=== PATIENT | female | born 1990 | race Caucasian/White ===

== ENCOUNTER 2016-06-27 18:42 | Emergency (ER) | payer OTHER ==
[2016-06-27 18:59] VITALS: BP 112/60; PULSE 102; TEMP 97.1; BMI 22.1
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
--- NOTE | 2016-06-27 19:58 | PDOC ---
*Physical Exam - Vital Signs Last Vital Signs Temp Pulse Resp BP Pulse Ox 97.1 F L 102 H 20 112/60 97 06/27/16 18:54 06/27/16 18:54 06/27/16 18:54 06/27/16 18:54 06/27/16 18:54 Medical Decision Making - Medical Decision Making 06/27/16 19:57 agree with care from [facility] *DC/Admit/Observation/Transfer Diagnosis at time of Disposition: Drug dependence - Discharge Dispostion Disposition: HOME Condition at time of disposition: Stable - Patient Instructions Printed Discharge Instructions: Chemical Dependency (Narcotic) (Alternative Therapy), DI for Drug Abuse and Drug Addiction Print Language: DJIBOUTIAN
== END 2016-06-27 21:32 | disposition home or self-care (01) ==
LOC: JER 18:42
DX: F11.20 Opioid dependence, uncomplicated (principal)
CPT/HCPCS: 99282-25

== ENCOUNTER 2018-01-02 15:53 | Inpatient (IN) | payer OTHER ==
[2018-01-02 17:16] VITALS: BMI 29.5
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
[2018-01-02] MEDS ORDERED: IBUPROFEN 400 MG TABLET (FP) PO PRN (19:04)
[2018-01-02] MEDS ORDERED: MAG HYDROX/AL HYDROX/SIMETH 30 ML UNIT-DOSE CUP PO PRN (19:04)
[2018-01-02] MEDS ORDERED: MAGNESIUM HYDROX 2400MG/30ML ORAL SUSPENSION 30 ML CUP PO PRN (19:04)
[2018-01-02] MEDS ORDERED: LOPERAMIDE HCL 2 MG CAPSULE PO PRN (19:04)
[2018-01-02] MEDS ORDERED: P-EPHED 60MG/TRIPROLIDI 2.5MG TABLET PO PRN (19:04)
[2018-01-02] MEDS ORDERED: MENTHOL/PHENOL 1 EACH UD MM PRN (19:04)
[2018-01-02] MEDS ORDERED: guaiFENesin/D-METHORPHAN HB 10 ML UNIT-DOSE CUPS PO PRN (19:04)
[2018-01-02] MEDS ORDERED: METHADONE HCL 10 MG TABLET (FOR DETOX USE ONLY) PO ONE ×2 (19:04→23:00)
[2018-01-02] MEDS ORDERED: ACETAMINOPHEN 325 MG TABLET (FP) PO PRN (19:04)
[2018-01-02] MEDS ORDERED: MAGNESIUM CITRATE 300 ML BOTTLE PO PRN (19:04)
[2018-01-02] MEDS: THIAMINE HCL 100 MG TABLET (FP) PO SCH (22:34)
[2018-01-02] MEDS: CYCLOBENZAPRINE HCL 10 MG TABLET (FP) PO SCH (22:34)
[2018-01-02] MEDS: diazePAM 5 MG TABLET PO PRN (22:35)
[2018-01-02 23:32] LABS: URINE APPEARANCE TURBID; URINE BILIRUBIN NEGATIVE (<2.0 mg/dL); URINE COLOR YELLOW; URINE GLUCOSE (UA) NEGATIVE (NEGATIVE); URINE KETONE NEGATIVE (NEGATIVE); URINE LEUK ESTERASE NEGATIVE (NEGATIVE); URINE NITRITE NEGATIVE (NEGATIVE); URINE PROTEIN 1+ (NEGATIVE); URINE UROBILINOGEN NEGATIVE mg/dL (0.2-1.0)
[2018-01-02 23:51] LABS: EPI CELLS FEW /HPF (FEW); URINE BACTERIA RARE /hpf (NONE SEEN); URINE MUCUS MODERATE
[2018-01-03] MEDS: diazePAM 5 MG TABLET PO PRN ×4 (05:41→22:15)
[2018-01-03] MEDS: CYCLOBENZAPRINE HCL 5 MG TABLET PO SCH ×3 (06:27→22:16)
[2018-01-03] MEDS: CYCLOBENZAPRINE HCL 10 MG TABLET (FP) PO SCH (06:48)
--- NOTE | 2018-01-03 07:42 | CONSULT ---
[facility] Psychiatric Consult - Data Date of interview: 01/03/18 Admission source: [facility] Identifying data: This is a 27 years old female, single mother of two, unemployed, homeless, with no financial support, with psychiatric hospitalization history,. with history of Heroin dependency, is reporting withdrawal symptoms and seeking for detox. Last detox [facility] Apr 2016. Denies suicidal and homicidal history. Substance Abuse History: - Smoking Cessation. Smoking history: Never smoked. Have you smoked in the past 12 months: No. Aproximately how many cigarettes per day: 20. Hx Chewing Tobacco Use: No. Initiated information on smoking cessation: Yes. 'Breaking Loose' booklet given: 01/02/18. - Substance & Tx. History. Hx Alcohol Use: No. Hx Substance Use: Yes. Substance Use Type: Heroin. Hx Substance Use Treatment: Yes (Last detox [facility] Apr 2016. ). - Substances Abused. Heroin. Route: Inhalation. Frequency: Daily. Amount used: 10 bags. Age of first use: 23. Date of Last Use: 01/01/18 Medical History: Anemia, head injury history, Tachycardia history Psychiatric History: Patient reports history of depression and anxiety, denies psychiatric hospitalizations history, no medications taking prior to admission. Denies nsuicidal, homicidal history. Physical/Sexual Abuse/Trauma History: Denies Additional Comment: Observation. Detox Unit Care Protocol Mental Status Exam - Mental Status Exam Alert and Oriented to: Person Cognitive Function: Fair Patient Appearance: Unkempt Mood: Sad Affect: Flat Patient Behavior: Sedated Speech Pattern: Delayed Voice Loudness: Mildly Soft/Quiet Thought Process: Circumstantial, Goal Oriented Thought Disorder: Being Controlled Hallucinations: Denies Suicidal Ideation: Denies Homicidal Ideation: Denies Insight/Judgement: Fair Sleep: Difficulty falling asleep Appetite: Fair Muscle strength/Tone: Mild Hypotonicity Gait/Station: Normal Additional Comments: Observation. Detox Unit Care Protocol Psychiatric Findings - Problem List ([place] 1, 2,3) (1) Nicotine dependence Current Visit: Yes Status: Acute Qualifiers: Nicotine product type: cigarettes (2) Opioid dependence with withdrawal Current Visit: Yes Status: Acute (3) Anemia Current Visit: Yes Status: Chronic Qualifiers: Anemia type: unspecified type Qualified Code(s): D64.9 - Anemia, unspecified (4) Closed head injury Current Visit: No Status: Acute (5) Drug dependence Current Visit: No Status: Acute (6) Tachycardia Current Visit: No Status: Acute - Initial Treatment Plan Initial Treatment Plan: Observation. Detox Unit Care Protocol
[2018-01-03] MEDS ORDERED: METHADONE HCL 10 MG TABLET (FOR DETOX USE ONLY) PO ONE (10:00)
[2018-01-03 10:09] LABS: HEMATOCRIT 39.3 % (32.4-45.2); HEMOGLOBIN 12.5 GM/dL (10.7-15.3); MCH 27.4 pg (25.7-33.7); MCHC 31.8 g/dl (32.0-36.0); MEAN PLT VOLUME 9.4 fl (7.5-11.1); PLATELET COUNT 253 K/MM3 (134-434); RBC 4.57 M/mm3 (3.60-5.2); RDW 16.9 % (11.6-15.6); WHITE BLOOD COUNT 9.7 K/mm3 (4.0-10.0)
[2018-01-03] MEDS: PRENATAL VITAMINS W/ FOLIC ACID TABLET (FP) PO SCH (10:15)
[2018-01-03 10:47] LABS: ALBUMIN 3.5 g/dl (3.4-5.0); ALK PHOS 71 U/L (45-117); ANION GAP 9 MMOL/L (8-16); BILIRUBIN,TOTAL 0.4 mg/dL (0.2-1); BLOOD UREA NITROGEN 12 mg/dL (7-18); CALCIUM 9.1 mg/dL (8.5-10.1); CHLORIDE 105 mmol/L (98-107); CO2 27 mmol/L (21-32); CREATININE 0.8 mg/dL (0.55-1.3); GLUCOSE,RANDOM 87 mg/dL (74-106); POTASSIUM 4.3 mmol/L (3.5-5.1); SGOT/AST 12 U/L (15-37); SGPT/ALT 16 U/L (13-61); SODIUM 141 mmol/L (136-145); TOT PROT 6.9 g/dl (6.4-8.2)
--- NOTE | 2018-01-03 11:29 | PN ---
BHS COWS - Scale Resting Pulse: 1= [place] 81-100 Sweatin=Flushed/Facial Moisture Restless Observation: 0= Sits Still Pupil Size: 0= Normal to Room Light Bone or Joint Aches: 2= Severe Diffuse Aches Runny Nose/ Eye Tearin= Nasal Congestion GI Upset > 30mins: 0= None Tremor Observation of Outstretched Hands: 2= Slight Tremor Visible Yawning Observation: 2= >3x During Session Anxiety or Irritability: 2=Irritable/Anxious Goose Flesh Skin: 0=Smooth Skin COWS Score: 12 BHS Progress Note (SOAP) Subjective: agitation anxiety sweats interrupted sleep Objective: 01/03/18 11:33 Vital Signs Temperature 98.2 F 01/03/18 11:00 Pulse Rate 81 01/03/18 11:00 Respiratory Rate 18 01/03/18 11:00 Blood Pressure 90/55 L 01/03/18 11:00 O2 Sat by Pulse Oximetry (%) Laboratory Tests 01/02/18 01/03/18 01/03/18 23:00 07:00 07:00 WBC 9.7 RBC 4.57 Hgb 12.5 Hct 39.3 D MCV 86.0 MCH 27.4 MCHC 31.8 L RDW 16.9 H Plt Count 253 D MPV 9.4 D Sodium Potassium Chloride Carbon Dioxide Anion Gap BUN Creatinine Creat Clearance w eGFR Random Glucose Calcium Total Bilirubin AST ALT Alkaline Phosphatase Total Protein Albumin Urine Color Yellow Urine Appearance Turbid Urine pH 5.0 Ur Specific [place] 1.032 Urine Protein 1+ H Urine Glucose (UA) Negative Urine Ketones Negative Urine Blood 1+ H Urine Nitrite Negative Urine Bilirubin Negative Urine Urobilinogen Negative Ur Leukocyte Esterase Negative Urine WBC (Auto) 23 Urine RBC (Auto) 3 Ur Epithelial Cells Few Urine Bacteria Rare Urine Mucus Moderate HIV 1&2 Antibody Screen Negative HIV P24 Antigen Negative 01/03/18 07:00 WBC RBC Hgb Hct MCV MCH MCHC RDW Plt Count MPV Sodium 141 Potassium 4.3 Chloride 105 Carbon Dioxide 27 Anion Gap 9 BUN 12 Creatinine 0.8 Creat Clearance w eGFR > 60 Random Glucose 87 Calcium 9.1 Total Bilirubin 0.4 AST 12 L ALT 16 Alkaline Phosphatase 71 Total Protein 6.9 Albumin 3.5 Urine Color Urine Appearance Urine pH Ur Specific [place] Urine Protein Urine Glucose (UA) Urine Ketones Urine Blood Urine Nitrite Urine Bilirubin Urine Urobilinogen Ur Leukocyte Esterase Urine WBC (Auto) Urine RBC (Auto) Ur Epithelial Cells Urine Bacteria Urine Mucus HIV 1&2 Antibody Screen HIV P24 Antigen aaox3 lying in bed no acute distress pt denies any vaginal/urine discomfort. pt has her menstruation. Assessment: 01/03/18 11:35 withdrawal sx Plan: continue detox increase fluids
--- NOTE | 2018-01-03 12:13 | EKG ---
Test Reason : Blood Pressure : / mmHG Vent. Rate : 069 BPM Atrial Rate : 069 BPM P-R Int : 124 ms QRS Dur : 082 ms QT Int : 396 ms P-R-T Axes : 024 -03 -07 degrees QTc Int : 424 ms NORMAL SINUS RHYTHM MODERATE VOLTAGE CRITERIA FOR LVH, MAY BE NORMAL VARIANT BORDERLINE ECG WHEN COMPARED WITH ECG OF 22-DEC-2012 09:21, INVERTED T WAVES HAVE REPLACED NONSPECIFIC T WAVE ABNORMALITY IN INFERIOR LEADS Confirmed by JERAMIE RADER MD ([id number]) on 01/03/2018 12:12:49 PM Referred By: Confirmed By:JERAMIE RADER MD
[2018-01-03] MEDS: THIAMINE HCL 100 MG TABLET (FP) PO SCH (22:15)
[2018-01-03] MEDS: MELATONIN 5 MG TABLETS PO PRN (22:16)
[2018-01-04] MEDS: CYCLOBENZAPRINE HCL 5 MG TABLET PO SCH ×3 (05:40→22:32)
[2018-01-04] MEDS: diazePAM 5 MG TABLET PO PRN ×4 (05:40→22:33)
[2018-01-04] MEDS ORDERED: METHADONE HCL 5 MG TABLET (FOR DETOX USE ONLY) PO ONE (10:00)
[2018-01-04] MEDS: PRENATAL VITAMINS W/ FOLIC ACID TABLET (FP) PO SCH (10:48)
--- NOTE | 2018-01-04 13:54 | PN ---
BHS COWS - Scale Resting Pulse: 0= [place] 80 or Below Sweatin=Flushed/Facial Moisture Restless Observation: 0= Sits Still Pupil Size: 0= Normal to Room Light Bone or Joint Aches: 2= Severe Diffuse Aches Runny Nose/ Eye Tearin= Nasal Congestion GI Upset > 30mins: 0= None Tremor Observation of Outstretched Hands: 2= Slight Tremor Visible Yawning Observation: 2= >3x During Session Anxiety or Irritability: 2=Irritable/Anxious Goose Flesh Skin: 0=Smooth Skin COWS Score: 11 BHS Progress Note (SOAP) Subjective: sweats irritable agitation tired Objective: 01/04/18 13:53 Vital Signs Temperature 97.7 F 01/04/18 10:00 Pulse Rate 60 01/04/18 10:00 Respiratory Rate 18 01/04/18 10:00 Blood Pressure 92/64 01/04/18 10:00 O2 Sat by Pulse Oximetry (%) Laboratory Tests 01/02/18 01/03/18 01/03/18 23:00 07:00 07:00 WBC 9.7 RBC 4.57 Hgb 12.5 Hct 39.3 D MCV 86.0 MCH 27.4 MCHC 31.8 L RDW 16.9 H Plt Count 253 D MPV 9.4 D Sodium Potassium Chloride Carbon Dioxide Anion Gap BUN Creatinine Creat Clearance w eGFR Random Glucose Calcium Total Bilirubin AST ALT Alkaline Phosphatase Total Protein Albumin Urine Color Yellow Urine Appearance Turbid Urine pH 5.0 Ur Specific [place] 1.032 Urine Protein 1+ H Urine Glucose (UA) Negative Urine Ketones Negative Urine Blood 1+ H Urine Nitrite Negative Urine Bilirubin Negative Urine Urobilinogen Negative Ur Leukocyte Esterase Negative Urine WBC (Auto) 23 Urine RBC (Auto) 3 Ur Epithelial Cells Few Urine Bacteria Rare Urine Mucus Moderate RPR Titer HIV 1&2 Antibody Screen Negative HIV P24 Antigen Negative 01/03/18 01/03/18 07:00 07:00 WBC RBC Hgb Hct MCV MCH MCHC RDW Plt Count MPV Sodium 141 Potassium 4.3 Chloride 105 Carbon Dioxide 27 Anion Gap 9 BUN 12 Creatinine 0.8 Creat Clearance w eGFR > 60 Random Glucose 87 Calcium 9.1 Total Bilirubin 0.4 AST 12 L ALT 16 Alkaline Phosphatase 71 Total Protein 6.9 Albumin 3.5 Urine Color Urine Appearance Urine pH Ur Specific [place] Urine Protein Urine Glucose (UA) Urine Ketones Urine Blood Urine Nitrite Urine Bilirubin Urine Urobilinogen Ur Leukocyte Esterase Urine WBC (Auto) Urine RBC (Auto) Ur Epithelial Cells Urine Bacteria Urine Mucus RPR Titer Nonreactive HIV 1&2 Antibody Screen HIV P24 Antigen aaox3 ambulating no acute distress Assessment: 01/04/18 13:53 withdrawal sx Plan: continue detox increase fluids
[2018-01-04] MEDS: MELATONIN 5 MG TABLETS PO PRN (22:32)
[2018-01-04] MEDS: THIAMINE HCL 100 MG TABLET (FP) PO SCH (22:34)
[2018-01-05] MEDS: CYCLOBENZAPRINE HCL 5 MG TABLET PO SCH ×3 (05:41→22:05)
[2018-01-05] MEDS: diazePAM 5 MG TABLET PO PRN ×3 (05:43→14:57)
[2018-01-05] MEDS ORDERED: METHADONE HCL 5 MG TABLET (FOR DETOX USE ONLY) PO ONE (10:00)
[2018-01-05] MEDS: PRENATAL VITAMINS W/ FOLIC ACID TABLET (FP) PO SCH (10:37)
--- NOTE | 2018-01-05 15:35 | PN ---
BHS Progress Note Note: acid reflux, decrease appetite, anxious Vital Signs Temperature 99.1 F 01/05/18 15:11 Pulse Rate 108 H 01/05/18 15:11 Respiratory Rate 20 01/05/18 15:11 Blood Pressure 118/74 01/05/18 15:11 O2 Sat by Pulse Oximetry (%) Laboratory Last Values WBC 9.7 K/mm3 (4.0-10.0) 01/03/18 07:00 RBC 4.57 M/mm3 (3.60-5.2) 01/03/18 07:00 Hgb 12.5 GM/dL (10.7-15.3) 01/03/18 07:00 Hct 39.3 % (32.4-45.2) D 01/03/18 07:00 MCV 86.0 fl (80-96) 01/03/18 07:00 MCH 27.4 pg (25.7-33.7) 01/03/18 07:00 MCHC 31.8 g/dl (32.0-36.0) L 01/03/18 07:00 RDW 16.9 % (11.6-15.6) H 01/03/18 07:00 Plt Count 253 K/MM3 (134-434) D 01/03/18 07:00 MPV 9.4 fl (7.5-11.1) D 01/03/18 07:00 Sodium 141 mmol/L (136-145) 01/03/18 07:00 Potassium 4.3 mmol/L (3.5-5.1) 01/03/18 07:00 Chloride 105 mmol/L (98-107) 01/03/18 07:00 Carbon Dioxide 27 mmol/L (21-32) 01/03/18 07:00 Anion Gap 9 MMOL/L (8-16) 01/03/18 07:00 BUN 12 mg/dL (7-18) 01/03/18 07:00 Creatinine 0.8 mg/dL (0.55-1.3) 01/03/18 07:00 Creat Clearance w eGFR > 60 (>60) 01/03/18 07:00 Random Glucose 87 mg/dL (74-106) 01/03/18 07:00 Calcium 9.1 mg/dL (8.5-10.1) 01/03/18 07:00 Total Bilirubin 0.4 mg/dL (0.2-1) 01/03/18 07:00 AST 12 U/L (15-37) L 01/03/18 07:00 ALT 16 U/L (13-61) 01/03/18 07:00 Alkaline Phosphatase 71 U/L (45-117) 01/03/18 07:00 Total Protein 6.9 g/dl (6.4-8.2) 01/03/18 07:00 Albumin 3.5 g/dl (3.4-5.0) 01/03/18 07:00 Urine Color Yellow 01/02/18 23:00 Urine Appearance Turbid 01/02/18 23:00 Urine pH 5.0 (5.0-8.0) 01/02/18 23:00 Ur Specific [place] 1.032 (1.010-1.035) 01/02/18 23:00 Urine Protein 1+ (NEGATIVE) H 01/02/18 23:00 Urine Glucose (UA) Negative (NEGATIVE) 01/02/18 23:00 Urine Ketones Negative (NEGATIVE) 01/02/18 23:00 Urine Blood 1+ (NEGATIVE) H 01/02/18 23:00 Urine Nitrite Negative (NEGATIVE) 01/02/18 23:00 Urine Bilirubin Negative (<2.0 mg/dL) 01/02/18 23:00 Urine Urobilinogen Negative mg/dL (0.2-1.0) 01/02/18 23:00 Ur Leukocyte Esterase Negative (NEGATIVE) 01/02/18 23:00 Urine WBC (Auto) 23 /hpf (3-5) 01/02/18 23:00 Urine RBC (Auto) 3 /hpf (0-3) 01/02/18 23:00 Ur Epithelial Cells Few /HPF (FEW) 01/02/18 23:00 Urine Bacteria Rare /hpf (NONE SEEN) 01/02/18 23:00 Urine Mucus Moderate 01/02/18 23:00 RPR Titer Nonreactive (NONREACTIVE) 01/03/18 07:00 HIV 1&2 Antibody Screen Negative 01/03/18 07:00 HIV P24 Antigen Negative 01/03/18 07:00 Aox3 no distress ABd non-tender non-distended full ROM ambulating in the unit withdrawal sx GERD protonix 20 mg qd increase fluids continue detox continue to monitor
[2018-01-05] MEDS: MELATONIN 5 MG TABLETS PO PRN (22:05)
[2018-01-05] MEDS: THIAMINE HCL 100 MG TABLET (FP) PO SCH (22:05)
[2018-01-06] MEDS: CYCLOBENZAPRINE HCL 5 MG TABLET PO SCH ×3 (06:09→22:01)
[2018-01-06] MEDS ORDERED: METHADONE HCL 10 MG TABLET (FOR DETOX USE ONLY) PO ONE (10:00)
[2018-01-06] MEDS: PRENATAL VITAMINS W/ FOLIC ACID TABLET (FP) PO SCH (10:29)
--- NOTE | 2018-01-06 14:40 | PN ---
BHS Progress Note (SOAP) Subjective: feeling better no tremor less sweat no body ache no muscle cramping sleep better at night Objective: 01/06/18 14:40 Vital Signs Temperature 97.6 F 01/06/18 10:00 Pulse Rate 78 01/06/18 10:00 Respiratory Rate 18 01/06/18 10:00 Blood Pressure 106/64 01/06/18 10:00 O2 Sat by Pulse Oximetry (%) Laboratory Last Values WBC 9.7 K/mm3 (4.0-10.0) 01/03/18 07:00 RBC 4.57 M/mm3 (3.60-5.2) 01/03/18 07:00 Hgb 12.5 GM/dL (10.7-15.3) 01/03/18 07:00 Hct 39.3 % (32.4-45.2) D 01/03/18 07:00 MCV 86.0 fl (80-96) 01/03/18 07:00 MCH 27.4 pg (25.7-33.7) 01/03/18 07:00 MCHC 31.8 g/dl (32.0-36.0) L 01/03/18 07:00 RDW 16.9 % (11.6-15.6) H 01/03/18 07:00 Plt Count 253 K/MM3 (134-434) D 01/03/18 07:00 MPV 9.4 fl (7.5-11.1) D 01/03/18 07:00 Sodium 141 mmol/L (136-145) 01/03/18 07:00 Potassium 4.3 mmol/L (3.5-5.1) 01/03/18 07:00 Chloride 105 mmol/L (98-107) 01/03/18 07:00 Carbon Dioxide 27 mmol/L (21-32) 01/03/18 07:00 Anion Gap 9 MMOL/L (8-16) 01/03/18 07:00 BUN 12 mg/dL (7-18) 01/03/18 07:00 Creatinine 0.8 mg/dL (0.55-1.3) 01/03/18 07:00 Creat Clearance w eGFR > 60 (>60) 01/03/18 07:00 Random Glucose 87 mg/dL (74-106) 01/03/18 07:00 Calcium 9.1 mg/dL (8.5-10.1) 01/03/18 07:00 Total Bilirubin 0.4 mg/dL (0.2-1) 01/03/18 07:00 AST 12 U/L (15-37) L 01/03/18 07:00 ALT 16 U/L (13-61) 01/03/18 07:00 Alkaline Phosphatase 71 U/L (45-117) 01/03/18 07:00 Total Protein 6.9 g/dl (6.4-8.2) 01/03/18 07:00 Albumin 3.5 g/dl (3.4-5.0) 01/03/18 07:00 Urine Color Yellow 01/02/18 23:00 Urine Appearance Turbid 01/02/18 23:00 Urine pH 5.0 (5.0-8.0) 01/02/18 23:00 Ur Specific [place] 1.032 (1.010-1.035) 01/02/18 23:00 Urine Protein 1+ (NEGATIVE) H 01/02/18 23:00 Urine Glucose (UA) Negative (NEGATIVE) 01/02/18 23:00 Urine Ketones Negative (NEGATIVE) 01/02/18 23:00 Urine Blood 1+ (NEGATIVE) H 01/02/18 23:00 Urine Nitrite Negative (NEGATIVE) 01/02/18 23:00 Urine Bilirubin Negative (<2.0 mg/dL) 01/02/18 23:00 Urine Urobilinogen Negative mg/dL (0.2-1.0) 01/02/18 23:00 Ur Leukocyte Esterase Negative (NEGATIVE) 01/02/18 23:00 Urine WBC (Auto) 23 /hpf (3-5) 01/02/18 23:00 Urine RBC (Auto) 3 /hpf (0-3) 01/02/18 23:00 Ur Epithelial Cells Few /HPF (FEW) 01/02/18 23:00 Urine Bacteria Rare /hpf (NONE SEEN) 01/02/18 23:00 Urine Mucus Moderate 01/02/18 23:00 RPR Titer Nonreactive (NONREACTIVE) 01/03/18 07:00 HIV 1&2 Antibody Screen Negative 01/03/18 07:00 HIV P24 Antigen Negative 01/03/18 07:00 lab noted Assessment: 01/06/18 14:40 mild withdrawal sx Plan: medically supervised detox
[2018-01-06] MEDS: THIAMINE HCL 100 MG TABLET (FP) PO SCH (22:01)
[2018-01-06] MEDS: MELATONIN 5 MG TABLETS PO PRN (22:01)
[2018-01-07] MEDS: CYCLOBENZAPRINE HCL 5 MG TABLET PO SCH (05:36)
[2018-01-07] MEDS ORDERED: METHADONE HCL 5 MG TABLET (FOR DETOX USE ONLY) PO ONE (06:00)
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
[2018-01-07] MEDS: PRENATAL VITAMINS W/ FOLIC ACID TABLET (FP) PO SCH (09:01)
[2018-01-07 09:17] VITALS: BP 124/80; PULSE 105; TEMP 97.9
== END 2018-01-07 09:45 | disposition home or self-care (01) | DRG 773 ==
LOC: YASAS 15:53 → Y6N 18:39
PROC: HZ2ZZZZ Detoxification Services for Substance Abuse Treatment (ICD-10-PCS; principal; 2018-01-02)
DX: F11.23 Opioid dependence with withdrawal (principal); F17.210 Nicotine dependence, cigarettes, uncomplicated; D64.9 Anemia, unspecified; K21.9 Gastro-esophageal reflux disease without esophagitis
CPT/HCPCS: 36415; 80053; 81003; 81015; 85027; 86593; 87389; 93005; 93010

== ENCOUNTER 2018-05-21 16:44 | Inpatient (IN) | payer OTHER ==
--- NOTE | 2018-05-21 21:41 | HP ---
COWS - Scale Resting Pulse: 0= ID 80 or Below Sweatin=Flushed/Facial Moisture Restless Observation: 0= Sits Still Pupil Size: 0= Normal to Room Light Bone or Joint Aches: 4=Acute Joint/Muscle Pain Runny Nose/ Eye Tearin= None GI Upset > 30mins: 2= Nausea/Diarrhea Tremor Observation: 2= Slight Tremor Visible Yawning Observation: 0= None Anxiety or Irritability: 4=Extreme Anxiety Goose Flesh Skin: 3=Piloerection COWS Score: 17 CIWA Score - Admission Criteria OASAS Guidelines: Admission for Medically Managed Detox: Requires at least one of the followin. CIWA greater than 12 2. Seizures within the past 24 hours 3. Delirium tremens within the past 24 hours 4. Hallucinations within the past 24 hours 5. Acute intervention needed for co occurring medical disorder 6. Acute intervention needed for co occurring psychiatric disorder 7. Severe withdrawal that cannot be handled at a lower level of care (continued vomiting, continued diarrhea, abnormal vital signs) requiring intravenous medication and/or fluids 8. Admission ROS [facility] Chief Complaint: Heroin withdrawal symptoms Allergies/Adverse Reactions: Allergies Allergy/AdvReac Type Severity Reaction Status Date / Time No Known Allergies Allergy Verified 05/21/18 23:50 History of Present Illness: 28 years old female with 5 years of heroin dependence is seeking admission to detox. Patient has been in previous detox and reports insignificant period of sobriety. She has medical history of anemia, seizure, depression and anxiety. She denies suicide attempt and suicidal ideation at this time. patient has cocaine and benzo n his urine but denies cocaine and benzo use. Reports that her heroine may have been contaminated with other drugs Exam Limitations: No Limitations - Ebola screening Have you traveled outside of the country in the last 21 days: No (N) Have you had contact with anyone from an Ebola affected area: No Have you been sick,other than usual withdrawal symptoms: No Do you have a fever: No - Review of Systems Constitutional: Chills, Loss of Appetite, Night Sweats, Changes in sleep EENT: reports: No Symptoms Reported Respiratory: reports: No Symptoms reported Cardiac: reports: No Symptoms Reported GI: reports: Nausea, Poor Appetite, Poor Fluid Intake, Abdominal cramping : reports: No Symptoms Reported Musculoskeletal: reports: Back Pain Integumentary: reports: Dryness Neuro: reports: Tremors Endocrine: reports: No Symptoms Reported Hematology: reports: Anemia Psychiatric: reports: Mood/Affect Appropiate, Orientated x3, Anxious, Depressed Other Systems: Reviewed and Negative Patient History - Patient Medical History Hx Anemia: Yes (Not on medication) Hx Asthma: No Hx Chronic Obstructive Pulmonary Disease (COPD): No Hx Cancer: No Hx Cardiac Disorders: No Hx Congestive Heart Failure: No Hx Hypertension: No Hx Hypercholesterolemia: No Hx Pacemaker: No HX Cerebrovascular Accident: No Hx Seizures: Yes (Last 2013) Hx Dementia: No Hx Diabetes: No Hx Gastrointestinal Disorders: No Hx Liver Disease: No Hx Genitourinary Disorders: No Hx Sexually Transmitted Disorders: No Hx Renal Disease (ESRD): No Hx Thyroid Disease: No Hx Human Immunodeficiency Virus (HIV): No (Negative ) Hx Hepatitis C: No Hx Depression: Yes (tx at [facility] apr 2016) Hx Suicide Attempt: Yes (ideation, hospitalized [facility] psych Mar 2014) Hx Bipolar Disorder: No Hx Schizophrenia: No Other Medical History: Anxiety - Not on medication - Patient Surgical History Past Surgical History: No Hx Neurologic Surgery: No Hx Cataract Extraction: No Hx Cardiac Surgery: No Hx Lung Surgery: No Hx Breast Surgery: No Hx Breast Biopsy: No Hx Abdominal Surgery: No Hx Appendectomy: No Hx Cholecystectomy: No Hx Genitourinary Surgery: No Hx Section: No Hx Orthopedic Surgery: No Anesthesia Reaction: No - PPD History Previous Implant?: Yes Documented Results: Negative w/o proof Implanted On Prior [facility] Admission?: Yes Date: 01/04/18 PPD to be Administered?: No - Reproductive History Patient is a Female of Child Bearing Age (11 -55 yrs old): Yes Last Menstrual Period: 01/02/18 LMP comment: ON IUD Patient : No - Smoking Cessation Smoking history: Current every day smoker Have you smoked in the past 12 months: Yes Aproximately how many cigarettes per day: 5 Hx Chewing Tobacco Use: No Initiated information on smoking cessation: Yes 'Breaking Loose' booklet given: 05/21/18 - Substance & Tx. History Hx Alcohol Use: No Hx Substance Use: Yes Substance Use Type: Heroin, Marijuana Hx Substance Use Treatment: Yes ([facility]) - Substances Abused Heroin Route: Inhalation Frequency: Daily Amount used: 5 BAGS Age of first use: 23 Date of Last Use: 05/21/18 Marijuana/Hashish Route: Smoking Frequency: 3-6 times per week Amount used: $30 Age of first use: 15 Date of Last Use: 05/18/18 Family Disease History - Family Disease History Family Disease History: Other: Father (living, no contact, etoh), Mother (living ), Brother (two - healthy), Daughter (two - ages 10, 5,) Admission Physical Exam [facility] - Physical General Appearance: Yes: Moderate Distress, Tremorous, Anxious HEENTM: Yes: EOMI, Normal ENT Inspection, Normal Voice, CHRISTINE Respiratory: Yes: Lungs Clear, Normal Breath Sounds, No Respiratory Distress Neck: Yes: Supple Breast: Yes: Breast Exam Deferred Cardiology: Yes: Regular Rhythm, Regular Rate Abdominal: Yes: Normal Bowel Sounds, Soft Genitourinary: Yes: Within Normal Limits Back: Yes: Normal Inspection Musculoskeletal: Yes: Within Normal Limits Extremities: Yes: Tremors 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: Yes: Alert, Normal Mood/Affect Integumentary: Yes: Warm Lymphatic: Yes: Within Normal Limits - Diagnostic (1) Nicotine dependence Current Visit: No Status: Acute Qualifiers: Nicotine product type: cigarettes Substance use status: uncomplicated Qualified Code(s): F17.210 - Nicotine dependence, cigarettes, uncomplicated (2) Opioid dependence with withdrawal Current Visit: Yes Status: Chronic (3) Anemia Current Visit: Yes Status: Chronic Qualifiers: Anemia type: unspecified type Qualified Code(s): D64.9 - Anemia, unspecified Cleared for Admission [facility] - Detox or Rehab [facility] Level of Care: Medically Managed Detox Regimen/Protocol: Methadone [facility] Breath Alcohol Content Breath Alcohol Content: 0 Inpatient Rehab Admission - Rehab Decision to Admit Inpatient rehab admission?: No
[2018-05-21] MEDS ORDERED: LOPERAMIDE HCL 2 MG CAPSULE PO PRN (21:58)
[2018-05-21] MEDS ORDERED: NICOTINE POLACRILEX 2 MG GUM BUC PRN (21:58)
[2018-05-21] MEDS ORDERED: MAG HYDROX/AL HYDROX/SIMETH 30 ML UNIT-DOSE CUP PO PRN (21:58)
[2018-05-21] MEDS ORDERED: ACETAMINOPHEN 325 MG TABLET (FP) PO PRN (21:58)
[2018-05-21] MEDS ORDERED: MAGNESIUM CITRATE 300 ML BOTTLE PO PRN (21:58)
[2018-05-21] MEDS ORDERED: guaiFENesin/D-METHORPHAN HB 10 ML UNIT-DOSE CUPS PO PRN (21:58)
[2018-05-21] MEDS ORDERED: MENTHOL/PHENOL 1 EACH UD MM PRN (21:58)
[2018-05-21] MEDS ORDERED: MAGNESIUM HYDROX 2400MG/30ML ORAL SUSPENSION 30 ML CUP PO PRN (21:58)
[2018-05-21] MEDS ORDERED: P-EPHED 60MG/TRIPROLIDI 2.5MG TABLET PO PRN (21:58)
[2018-05-21] MEDS ORDERED: METHADONE HCL 10 MG TABLET (FOR DETOX USE ONLY) PO ONE ×2 (21:58→23:00)
[2018-05-22] MEDS ORDERED: METHADONE HCL 10 MG TABLET (FOR DETOX USE ONLY) PO ONE ×2 (01:45→10:00)
[2018-05-22] MEDS: IBUPROFEN 400 MG TABLET (FP) PO PRN ×3 (01:53→22:18)
[2018-05-22] MEDS: THIAMINE HCL 100 MG TABLET (FP) PO SCH ×2 (01:54→22:18)
[2018-05-22] MEDS: MELATONIN 5 MG TABLETS PO PRN ×2 (01:56→22:18)
[2018-05-22] MEDS: PRENATAL VITAMINS W/ FOLIC ACID TABLET (FP) PO SCH (10:32)
[2018-05-22] MEDS: NICOTINE 14 MG/24 HOURS TOPICAL PATCH TD SCH (10:32)
--- NOTE | 2018-05-22 11:26 | PN ---
BHS COWS - Scale Resting Pulse: 1= OK 81-100 Sweatin=Flushed/Facial Moisture Restless Observation: 1= Difficult to Sit Still Pupil Size: 0= Normal to Room Light Bone or Joint Aches: 2= Severe Diffuse Aches Runny Nose/ Eye Tearin= Runny Nose/Eyes GI Upset > 30mins: 1= Stomach Cramp Tremor Observation of Outstretched Hands: 2= Slight Tremor Visible Yawning Observation: 2= >3x During Session Anxiety or Irritability: 2=Irritable/Anxious Goose Flesh Skin: 0=Smooth Skin COWS Score: 15 BHS Progress Note (SOAP) Subjective: sweats shakes body aches nasal congestion restless irritable interrupted sleep Objective: 05/22/18 11:25 Vital Signs Temperature 98.2 F 05/22/18 09:33 Pulse Rate 84 05/22/18 09:33 Respiratory Rate 18 05/22/18 09:33 Blood Pressure 131/86 05/22/18 09:33 O2 Sat by Pulse Oximetry (%) labs pending aaox3 lying in bed no acute distress Assessment: 05/22/18 11:26 withdrawal sx Plan: continue detox increase fluids actifed prn labs pending
[2018-05-22 12:37] LABS: HEMATOCRIT 37.2 % (32.4-45.2); HEMOGLOBIN 12.2 GM/dL (10.7-15.3); MCH 28.6 pg (25.7-33.7); MCHC 32.8 g/dl (32.0-36.0); MEAN CELL VOLUME 87.2 fl (80-96); MEAN PLT VOLUME 9.4 fl (7.5-11.1); PLATELET COUNT 303 K/MM3 (134-434); RBC 4.27 M/mm3 (3.60-5.2); RDW 14.9 % (11.6-15.6); WHITE BLOOD COUNT 9.3 K/mm3 (4.0-10.0)
[2018-05-22 12:56] LABS: ALBUMIN 3.6 g/dl (3.4-5.0); ALK PHOS 72 U/L (45-117); ANION GAP 6 MMOL/L (8-16); BILIRUBIN,TOTAL 0.2 mg/dL (0.2-1); BLOOD UREA NITROGEN 6 mg/dL (7-18); CALCIUM 8.6 mg/dL (8.5-10.1); CHLORIDE 103 mmol/L (98-107); CO2 29 mmol/L (21-32); CREATININE 0.7 mg/dL (0.55-1.3); GLUCOSE,RANDOM 104 mg/dL (74-106); POTASSIUM 4.5 mmol/L (3.5-5.1); SGOT/AST 13 U/L (15-37); SGPT/ALT 14 U/L (13-61); SODIUM 138 mmol/L (136-145); TOT PROT 6.9 g/dl (6.4-8.2)
[2018-05-22] MEDS: diazePAM 5 MG TABLET PO PRN (22:18)
[2018-05-23] MEDS ORDERED: METHADONE HCL 5 MG TABLET (FOR DETOX USE ONLY) PO ONE (10:00)
[2018-05-23] MEDS: diazePAM 5 MG TABLET PO PRN ×3 (10:05→22:15)
[2018-05-23] MEDS: PRENATAL VITAMINS W/ FOLIC ACID TABLET (FP) PO SCH (10:05)
[2018-05-23] MEDS: NICOTINE 14 MG/24 HOURS TOPICAL PATCH TD SCH (10:07)
--- NOTE | 2018-05-23 11:29 | PN ---
BHS COWS - Scale Resting Pulse: 0= [place] 80 or Below Sweatin=Flushed/Facial Moisture Restless Observation: 1= Difficult to Sit Still Pupil Size: 0= Normal to Room Light Bone or Joint Aches: 2= Severe Diffuse Aches Runny Nose/ Eye Tearin= Nasal Congestion GI Upset > 30mins: 0= None Tremor Observation of Outstretched Hands: 2= Slight Tremor Visible Yawning Observation: 0= None Anxiety or Irritability: 2=Irritable/Anxious Goose Flesh Skin: 0=Smooth Skin COWS Score: 10 BHS Progress Note (SOAP) Subjective: sweats mild shakes interrupted sleep agitation Objective: 05/23/18 11:28 Vital Signs Temperature 98.2 F 05/23/18 09:46 Pulse Rate 82 05/23/18 09:46 Respiratory Rate 18 05/23/18 09:46 Blood Pressure 137/75 05/23/18 09:46 O2 Sat by Pulse Oximetry (%) Laboratory Tests 05/22/18 05/22/18 05/22/18 07:00 07:00 07:00 WBC 9.3 RBC 4.27 Hgb 12.2 Hct 37.2 MCV 87.2 MCH 28.6 MCHC 32.8 RDW 14.9 D Plt Count 303 MPV 9.4 Sodium 138 Potassium 4.5 Chloride 103 Carbon Dioxide 29 Anion Gap 6 L BUN 6 L Creatinine 0.7 Creat Clearance w eGFR > 60 Random Glucose 104 Calcium 8.6 Total Bilirubin 0.2 AST 13 L ALT 14 Alkaline Phosphatase 72 Total Protein 6.9 Albumin 3.6 RPR Titer Nonreactive HIV 1&2 Antibody Screen HIV P24 Antigen 05/22/18 07:00 WBC RBC Hgb Hct MCV MCH MCHC RDW Plt Count MPV Sodium Potassium Chloride Carbon Dioxide Anion Gap BUN Creatinine Creat Clearance w eGFR Random Glucose Calcium Total Bilirubin AST ALT Alkaline Phosphatase Total Protein Albumin RPR Titer HIV 1&2 Antibody Screen Negative HIV P24 Antigen Negative aaox3 ambulating no acute distress Assessment: 05/23/18 11:29 withdrawal sx Plan: continue detox increase fluids
[2018-05-23] MEDS: THIAMINE HCL 100 MG TABLET (FP) PO SCH (22:15)
[2018-05-23] MEDS: MELATONIN 5 MG TABLETS PO PRN (22:16)
[2018-05-23] MEDS: IBUPROFEN 400 MG TABLET (FP) PO PRN (23:02)
[2018-05-24] MEDS ORDERED: METHADONE HCL 5 MG TABLET (FOR DETOX USE ONLY) PO ONE (10:00)
[2018-05-24] MEDS: PRENATAL VITAMINS W/ FOLIC ACID TABLET (FP) PO SCH (10:45)
[2018-05-24] MEDS: NICOTINE 14 MG/24 HOURS TOPICAL PATCH TD SCH (10:46)
--- NOTE | 2018-05-24 12:07 | PN ---
BHS Progress Note (SOAP) Subjective: feeling much better sweats agitation i need to leave tomorrow because i have a job to go to on sunday. Objective: 05/24/18 12:04 Vital Signs Period Temp Pulse Resp BP Sys/Stevenson Pulse Ox Last 24 Hr 97.9 F-98.6 F 55-102 16-18 105-126/57-84 aaox3 ambulating no acute distress Assessment: 05/24/18 12:08 withdrawal sx Plan: continue detox as ordered increase fluids d/c in am
[2018-05-24] MEDS: diazePAM 5 MG TABLET PO PRN (13:11)
[2018-05-24] MEDS: MELATONIN 5 MG TABLETS PO PRN (22:29)
[2018-05-24] MEDS: THIAMINE HCL 100 MG TABLET (FP) PO SCH (22:29)
[2018-05-24] MEDS ORDERED: diazePAM 5 MG TABLET PO ONE (23:23)
[2018-05-25] MEDS ORDERED: METHADONE HCL 10 MG TABLET (FOR DETOX USE ONLY) PO ONE ×2 (06:00→10:00)
[2018-05-25 07:13] VITALS: TEMP 97.7
[2018-05-25 09:38] VITALS: BP 114/70; PULSE 76
--- NOTE | 2018-05-25 11:41 | PN ---
S Progress Note (SOAP) Subjective: denies any complaints Objective: 05/25/18 11:40 A & O x 3 Not distress noted gait steady Vital Signs Temperature 97.7 F 05/25/18 09:37 Pulse Rate 76 05/25/18 09:37 Respiratory Rate 18 05/25/18 09:37 Blood Pressure 114/70 05/25/18 09:37 O2 Sat by Pulse Oximetry (%) Assessment: 05/25/18 11:41 detox completed Plan: for d/c
--- NOTE | 2018-05-25 11:46 | DS ---
[facility] Detox Discharge Summary Admission Date: 05/21/18 Discharge Date: 05/25/18 - History Additional Comments: Pt completed detox For discharge Pt going home to resume her job on sunday States she will do aftercare rehab by attending outpatient at [facility] and NA meetings Denies any home meds Narcan rx sent to [place] - verbalized understanding to pick it up - Physical Exam Results Vital Signs: Vital Signs Temperature 97.7 F 05/25/18 09:37 Pulse Rate 76 05/25/18 09:37 Respiratory Rate 18 05/25/18 09:37 Blood Pressure 114/70 05/25/18 09:37 O2 Sat by Pulse Oximetry (%) Pertinent Admission Physical Exam Findings: withdrawal sx - Treatment Hospital Course: Detox Protocol Followed, Detoxed Safely, Responded well, Discharged Condition Good, Rehab Referral Accepted Patient has Accepted a Rehab Referral to: Out patient at [facility] - Medication Discharge Medications: Ambulatory Orders Ferrous Sulfate 325 mg PO DAILY 01/02/18 Docusate Sodium [Colace -] 100 mg PO TID #90 capsule 01/28/18 Buprenorphine/Naloxone [Suboxone 8Mg/2Mg Sl Film -] 2 each SL DAILY #7 packet MDD 2 03/21/18 traZODone HCL [Trazodone HCl] 100 mg PO HS 05/21/18 - AMA Did Patient Leave Against Medical Advice: No
[2018-05-26] MEDS ORDERED: METHADONE HCL 5 MG TABLET (FOR DETOX USE ONLY) PO ONE (06:00)
== END 2018-05-25 09:53 | disposition home or self-care (01) | DRG 773 ==
LOC: YASAS 16:44 → Y6N 21:28
PROVIDERS: ADMIT Surgery; ATTEND Surgery
PROC: HZ2ZZZZ Detoxification Services for Substance Abuse Treatment (ICD-10-PCS; principal; 2018-05-21)
DX: F11.23 Opioid dependence with withdrawal (principal); F17.210 Nicotine dependence, cigarettes, uncomplicated; Z86.69 Personal history of other diseases of the nervous system and sense organs; Z91.5 Personal history of self-harm
CPT/HCPCS: 36415; 80053; 85027; 86593; 87389

== ENCOUNTER 2018-09-16 21:21 | Inpatient (IN) | payer OTHER ==
[2018-09-16 22:10] VITALS: BMI 28.3
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
[2018-09-16] MEDS ORDERED: NALOXONE HCL 0.4 MG/ML VIAL IVPUSH PRN (22:52)
[2018-09-16] MEDS ORDERED: ONDANSETRON *ODT* 4 MG TABLET SL PRN (22:52)
[2018-09-16] MEDS ORDERED: MAGNESIUM CITRATE 300 ML BOTTLE PO PRN (22:52)
[2018-09-16] MEDS ORDERED: P-EPHED 60MG/TRIPROLIDI 2.5MG TABLET PO PRN (22:52)
[2018-09-16] MEDS ORDERED: MENTHOL/PHENOL 1 EACH UD MM PRN (22:52)
[2018-09-16] MEDS ORDERED: MAG HYDROX/AL HYDROX/SIMETH 30 ML UNIT-DOSE CUP PO PRN (22:52)
[2018-09-16] MEDS ORDERED: guaiFENesin 200 MG/10 ML 10 ML UNIT-DOSE CUPS PO PRN (22:52)
[2018-09-16] MEDS ORDERED: METHOCARBAMOL 500 MG TABLET PO PRN (22:52)
[2018-09-16] MEDS ORDERED: DICYCLOMINE HCL 10 MG CAPSULE PO PRN (22:52)
[2018-09-16] MEDS ORDERED: IBUPROFEN 400 MG TABLET (FP) PO PRN (22:52)
[2018-09-16] MEDS ORDERED: ACETAMINOPHEN 325 MG TABLET (FP) PO PRN ×2 (22:52)
[2018-09-16] MEDS ORDERED: hydrOXYzine PAMOATE 25 MG CAPSULE (FP) PO PRN (22:52)
[2018-09-16] MEDS ORDERED: BISMUTH SUBSALICYLATE 524 MG/30 ML UD PO PRN (22:52)
[2018-09-16] MEDS ORDERED: NICOTINE POLACRILEX 2 MG GUM BUC PRN (22:52)
[2018-09-16] MEDS ORDERED: MAGNESIUM HYDROX 2400MG/30ML ORAL SUSPENSION 30 ML CUP PO PRN (22:52)
[2018-09-16] MEDS ORDERED: cloNIDine HCL 0.1 MG TABLET PO PRN (22:52)
[2018-09-16] MEDS ORDERED: METHADONE HCL 10 MG TABLET (FOR DETOX USE ONLY) PO ONE (23:00)
[2018-09-17] MEDS: diazePAM 5 MG TABLET PO SCH ×4 (00:18→22:32)
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
[2018-09-17] MEDS ORDERED: hydrOXYzine PAMOATE 50 MG CAPSULE (FP) PO PRN (09:07)
[2018-09-17] MEDS ORDERED: METHADONE HCL 10 MG TABLET (FOR DETOX USE ONLY) PO ONE (10:00)
[2018-09-17 10:07] LABS: ALBUMIN 3.2 g/dl (3.4-5.0); BILIRUBIN,TOTAL 0.3 mg/dL (0.2-1); BLOOD UREA NITROGEN 10.8 mg/dL (7-18); CALCIUM 8.7 mg/dL (8.5-10.1); CREATININE 0.8 mg/dL (0.55-1.3); POTASSIUM 4.2 mmol/L (3.5-5.1); TOT PROT 6.3 g/dl (6.4-8.2)
[2018-09-17 10:08] LABS: HEMOGLOBIN 11.2 GM/dL (10.7-15.3); MCH 27.8 pg (25.7-33.7); MCHC 32.1 g/dl (32.0-36.0); MEAN CELL VOLUME 86.4 fl (80-96); MEAN PLT VOLUME 8.8 fl (7.5-11.1); RBC 4.05 M/mm3 (3.60-5.2); RDW 14.1 % (11.6-15.6); WHITE BLOOD COUNT 11.9 K/mm3 (4.0-10.0)
[2018-09-17] MEDS: PRENATAL VITAMINS W/ FOLIC ACID TABLET (FP) PO SCH (10:45)
[2018-09-17] MEDS: NICOTINE 21 MG/24 HOURS TOPICAL PATCH TD SCH (10:46)
[2018-09-17 10:47] LABS: PLATELET COUNT 279 K/MM3 (134-434)
--- NOTE | 2018-09-17 11:21 | PN ---
[facility] CIWA - CIWA Score Nausea/Vomitin-No Nausea/No Vomiting Muscle Tremors: 2 Anxiety: 2 Agitation: 2 Paroxysmal Sweats: 3 Orientation: 0-Oriented Tacttile Disturbances: 0-None Auditory Disturbances: 0-None Visual Disturbances: 0-None Headache: 0-None Present CIWA-Ar Total Score: 9 BHS COWS - Scale Resting Pulse: 0= [place] 80 or Below Sweatin=Flushed/Facial Moisture Restless Observation: 1= Difficult to Sit Still Pupil Size: 0= Normal to Room Light Bone or Joint Aches: 1= Mild Discomfort Runny Nose/ Eye Tearin= Runny Nose/Eyes GI Upset > 30mins: 0= None Tremor Observation of Outstretched Hands: 1= Tremor [place], Not Seen Yawning Observation: 2= >3x During Session Anxiety or Irritability: 1=Feels Anxious/Irritable Goose Flesh Skin: 0=Smooth Skin COWS Score: 10 [facility] Progress Note (SOAP) Subjective: sweats shakes interrupted sleep tired body aches Objective: 09/17/18 11:21 Vital Signs Temperature 97.5 F L 09/17/18 09:49 Pulse Rate 78 09/17/18 09:49 Respiratory Rate 18 09/17/18 09:49 Blood Pressure 120/80 09/17/18 09:49 O2 Sat by Pulse Oximetry (%) Laboratory Tests 09/16/18 09/17/18 09/17/18 22:38 07:00 07:00 WBC 11.9 H RBC 4.05 Hgb 11.2 Hct 35.0 MCV 86.4 MCH 27.8 MCHC 32.1 RDW 14.1 Plt Count 279 MPV 8.8 Sodium 141 Potassium 4.2 Chloride 107 Carbon Dioxide 30 Anion Gap 4 L BUN 10.8 Creatinine 0.8 Est GFR (CKD-EPI)AfAm 114.66 Est GFR (CKD-EPI)NonAf 98.93 Random Glucose 99 Calcium 8.7 Total Bilirubin 0.3 AST 13 L ALT 16 Alkaline Phosphatase 79 Total Protein 6.3 L Albumin 3.2 L POC Urine HCG, Qual Negative labs noted aaox3 ambulating no acute distress Assessment: 09/17/18 11:21 withdrawal sx Plan: continue detox increase fluids
[2018-09-17 17:18] LABS: EPI CELLS 0.7 /HPF (0-5/HPF); HYALINE CASTS 0 /lpf (0-8); PH,URINE 7.5 (5.0-8.0); URINE APPEARANCE CLEAR; URINE BACTERIA 34.5 /hpf (NEGATIVE); URINE BILIRUBIN NEGATIVE (NEGATIVE); URINE COLOR YELLOW; URINE GLUCOSE (UA) NEGATIVE (NEGATIVE); URINE KETONE NEGATIVE (NEGATIVE); URINE LEUK ESTERASE NEGATIVE (NEGATIVE); URINE NITRITE NEGATIVE (NEGATIVE); URINE PROTEIN NEGATIVE (NEGATIVE); URINE RBC 159 /hpf (0-4); URINE WBC 1 /hpf (0-5)
[2018-09-17] MEDS: diazePAM 5 MG TABLET PO PRN (20:49)
[2018-09-17] MEDS ORDERED: SUVOREXANT 10 MG TABLET PO PRN (22:00)
[2018-09-17] MEDS: THIAMINE HCL 100 MG TABLET (FP) PO SCH (22:31)
[2018-09-17] MEDS: MELATONIN 5 MG TABLETS PO PRN (22:32)
[2018-09-18] MEDS ORDERED: METHADONE HCL 10 MG TABLET (FOR DETOX USE ONLY) PO ONE (10:00)
[2018-09-18] MEDS: PRENATAL VITAMINS W/ FOLIC ACID TABLET (FP) PO SCH (10:49)
[2018-09-18] MEDS: diazePAM 5 MG TABLET PO SCH ×2 (10:49→22:45)
[2018-09-18] MEDS: NICOTINE 21 MG/24 HOURS TOPICAL PATCH TD SCH (10:49)
--- NOTE | 2018-09-18 13:52 | PN ---
[facility] CIWA - CIWA Score Nausea/Vomitin-Mild Nausea/No Vomiting Muscle Tremors: 3 Anxiety: 2 Agitation: 2 Paroxysmal Sweats: 1-Minimal Palms Moist Orientation: 0-Oriented Tacttile Disturbances: 0-None Auditory Disturbances: 0-None Visual Disturbances: 0-None Headache: 0-None Present CIWA-Ar Total Score: 9 BHS COWS - Scale Resting Pulse: 0= [place] 80 or Below Sweatin= Chills/Flushing Restless Observation: 0= Sits Still Pupil Size: 0= Normal to Room Light Bone or Joint Aches: 1= Mild Discomfort Runny Nose/ Eye Tearin= Nasal Congestion GI Upset > 30mins: 0= None Tremor Observation of Outstretched Hands: 1= Tremor [place], Not Seen Yawning Observation: 1= 1-2x During Session Anxiety or Irritability: 1=Feels Anxious/Irritable Goose Flesh Skin: 0=Smooth Skin COWS Score: 6 S Progress Note (SOAP) Subjective: sweats nausea chills Objective: 09/18/18 13:51 Vital Signs Temperature 97.5 F L 09/18/18 10:00 Pulse Rate 73 09/18/18 10:00 Respiratory Rate 18 09/18/18 10:00 Blood Pressure 107/53 L 09/18/18 10:00 O2 Sat by Pulse Oximetry (%) Laboratory Tests 09/16/18 09/16/18 09/17/18 16:51 22:38 07:00 WBC 11.9 H RBC 4.05 Hgb 11.2 Hct 35.0 MCV 86.4 MCH 27.8 MCHC 32.1 RDW 14.1 Plt Count 279 MPV 8.8 Sodium Potassium Chloride Carbon Dioxide Anion Gap BUN Creatinine Est GFR (CKD-EPI)AfAm Est GFR (CKD-EPI)NonAf Random Glucose Calcium Total Bilirubin AST ALT Alkaline Phosphatase Total Protein Albumin Urine Color Yellow Urine Appearance Clear Urine pH 7.5 D Ur Specific [place] 1.014 Urine Protein Negative Urine Glucose (UA) Negative Urine Ketones Negative Urine Blood 3+ H Urine Nitrite Negative Urine Bilirubin Negative Urine Urobilinogen 1.0 Ur Leukocyte Esterase Negative Urine WBC (Auto) 1 Urine RBC (Auto) 159 Urine Casts (Auto) 0 U Epithel Cells (Auto) 0.7 Urine Bacteria (Auto) 34.5 POC Urine HCG, Qual Negative RPR Titer 09/17/18 09/17/18 07:00 07:00 WBC RBC Hgb Hct MCV MCH MCHC RDW Plt Count MPV Sodium 141 Potassium 4.2 Chloride 107 Carbon Dioxide 30 Anion Gap 4 L BUN 10.8 Creatinine 0.8 Est GFR (CKD-EPI)AfAm 114.66 Est GFR (CKD-EPI)NonAf 98.93 Random Glucose 99 Calcium 8.7 Total Bilirubin 0.3 AST 13 L ALT 16 Alkaline Phosphatase 79 Total Protein 6.3 L Albumin 3.2 L Urine Color Urine Appearance Urine pH Ur Specific [place] Urine Protein Urine Glucose (UA) Urine Ketones Urine Blood Urine Nitrite Urine Bilirubin Urine Urobilinogen Ur Leukocyte Esterase Urine WBC (Auto) Urine RBC (Auto) Urine Casts (Auto) U Epithel Cells (Auto) Urine Bacteria (Auto) POC Urine HCG, Qual RPR Titer Nonreactive aaox3 ambulating no acute distress Assessment: 09/18/18 13:51 withdrawal sx Plan: continue detox increase fluids edil sheehan prn
[2018-09-18] MEDS: diazePAM 5 MG TABLET PO PRN (14:50)
[2018-09-18] MEDS: MELATONIN 5 MG TABLETS PO PRN (22:45)
[2018-09-18] MEDS: THIAMINE HCL 100 MG TABLET (FP) PO SCH (22:45)
[2018-09-19] MEDS ORDERED: diazePAM 5 MG TABLET PO SCH (06:00)
[2018-09-19] MEDS ORDERED: METHADONE HCL 10 MG TABLET (FOR DETOX USE ONLY) PO ONE (10:00)
[2018-09-19] MEDS: PRENATAL VITAMINS W/ FOLIC ACID TABLET (FP) PO SCH (10:28)
[2018-09-19] MEDS: NICOTINE 21 MG/24 HOURS TOPICAL PATCH TD SCH (10:28)
[2018-09-19] MEDS: diazePAM 5 MG TABLET PO PRN ×2 (10:30→15:22)
--- NOTE | 2018-09-19 12:26 | PN ---
[facility] CIWA - CIWA Score Nausea/Vomitin-No Nausea/No Vomiting Muscle Tremors: 2 Anxiety: 1-Mildly Anxious Agitation: 1-Slight > Activity Paroxysmal Sweats: 1-Minimal Palms Moist Orientation: 0-Oriented Tacttile Disturbances: 0-None Auditory Disturbances: 0-None Visual Disturbances: 0-None Headache: 0-None Present CIWA-Ar Total Score: 5 BHS COWS - Scale Resting Pulse: 0= [place] 80 or Below Sweatin= No chills or Flushing Restless Observation: 0= Sits Still Pupil Size: 0= Normal to Room Light Bone or Joint Aches: 1= Mild Discomfort Runny Nose/ Eye Tearin= Runny Nose/Eyes GI Upset > 30mins: 0= None Tremor Observation of Outstretched Hands: 1= Tremor [place], Not Seen Yawning Observation: 1= 1-2x During Session Anxiety or Irritability: 0= None Goose Flesh Skin: 0=Smooth Skin COWS Score: 5 S Progress Note (SOAP) Subjective: sweats feeling better Objective: 09/19/18 12:25 Vital Signs Temperature 97.7 F 09/19/18 09:37 Pulse Rate 52 L 09/19/18 09:37 Respiratory Rate 18 09/19/18 09:37 Blood Pressure 103/63 09/19/18 09:37 O2 Sat by Pulse Oximetry (%) aaox3 ambulating no acute distress Assessment: 09/19/18 12:25 mild withdrawal sx Plan: continue detox increase fluids d/c in am
[2018-09-19] MEDS: THIAMINE HCL 100 MG TABLET (FP) PO SCH (22:08)
[2018-09-19] MEDS: MELATONIN 5 MG TABLETS PO PRN (22:08)
[2018-09-20] MEDS ORDERED: METHADONE HCL 5 MG TABLET (FOR DETOX USE ONLY) PO ONE (06:00)
[2018-09-20 09:30] VITALS: BP 119/72; PULSE 86; TEMP 98.1
--- NOTE | 2018-09-20 09:32 | DS ---
[facility] Detox Discharge Summary Admission Date: 09/16/18 Discharge Date: 09/20/18 - History Present History: Opioid Dependence - Physical Exam Results Vital Signs: Vital Signs Temperature 97.9 F 09/20/18 07:18 Pulse Rate 60 09/20/18 07:18 Respiratory Rate 16 09/20/18 07:18 Blood Pressure 96/65 09/20/18 07:18 O2 Sat by Pulse Oximetry (%) - Treatment Hospital Course: Detox Protocol Followed, Detoxed Safely, Responded well, Discharged Condition Good, Rehab Referral Accepted - Medication Discharge Medications: Ambulatory Orders NK [No Known Home Medication] 09/16/18 - Diagnosis (1) Excoriation (skin-picking) disorder Current Visit: Yes Status: Chronic (2) Sedative, hypnotic or anxiolytic dependence with withdrawal, uncomplicated Current Visit: Yes Status: Chronic (3) Substance induced mood disorder Current Visit: Yes Status: Acute (4) Substance-induced sleep disorder Current Visit: Yes Status: Acute (5) MDD (major depressive disorder) Current Visit: Yes Status: Ruled-out (6) PTSD (post-traumatic stress disorder) Current Visit: Yes Status: Chronic (7) Nicotine dependence Current Visit: Yes Status: Chronic Qualifiers: Nicotine product type: cigarettes Substance use status: uncomplicated Qualified Code(s): F17.210 - Nicotine dependence, cigarettes, uncomplicated (8) Opioid dependence with withdrawal Current Visit: Yes Status: Chronic - AMA Did Patient Leave Against Medical Advice: No (pt declined rehab; referral provided; going home)
== END 2018-09-20 09:30 | disposition home or self-care (01) | DRG 773 ==
LOC: YASAS 21:21 → Y6N 22:24
PROVIDERS: ADMIT Surgery; ATTEND Surgery
PROC: HZ2ZZZZ Detoxification Services for Substance Abuse Treatment (ICD-10-PCS; principal; 2018-09-16)
DX: F11.23 Opioid dependence with withdrawal (principal); F13.230 Sedative, hypnotic or anxiolytic dependence with withdrawal, uncomplicated; F17.210 Nicotine dependence, cigarettes, uncomplicated; F19.282 Other psychoactive substance dependence with psychoactive substance-induced sleep disorder; F19.24 Other psychoactive substance dependence with psychoactive substance-induced mood disorder; F43.10 Post-traumatic stress disorder, unspecified; F33.9 Major depressive disorder, recurrent, unspecified; F42.4 Excoriation (skin-picking) disorder
CPT/HCPCS: 36415; 80053; 81003; 81025; 85027; 86593; J0735

== ENCOUNTER 2018-12-05 16:37 | Inpatient (IN) | payer OTHER ==
[2018-12-05 19:27] VITALS: BMI 31.5
[2018-12-05] MEDS ORDERED: BISMUTH SUBSALICYLATE 524 MG/30 ML UD PO PRN (20:57)
[2018-12-05] MEDS ORDERED: cloNIDine HCL 0.1 MG TABLET PO PRN (20:57)
[2018-12-05] MEDS ORDERED: MAG HYDROX/AL HYDROX/SIMETH 30 ML UNIT-DOSE CUP PO PRN (20:57)
[2018-12-05] MEDS ORDERED: MENTHOL/PHENOL 1 EACH UD MM PRN (20:57)
[2018-12-05] MEDS ORDERED: MAGNESIUM CITRATE 300 ML BOTTLE PO PRN (20:57)
[2018-12-05] MEDS ORDERED: MAGNESIUM HYDROX 2400MG/30ML ORAL SUSPENSION 30 ML CUP PO PRN (20:57)
[2018-12-05] MEDS ORDERED: METHOCARBAMOL 500 MG TABLET PO PRN (20:57)
[2018-12-05] MEDS ORDERED: ACETAMINOPHEN 325 MG TABLET (FP) PO PRN ×2 (20:57)
--- NOTE | 2018-12-05 20:57 | HP ---
COWS - Scale Resting Pulse: 1= [place] 81-100 Sweatin= Chills/Flushing Restless Observation: 1= Difficult to Sit Still Pupil Size: 0= Normal to Room Light Bone or Joint Aches: 1= Mild Discomfort Runny Nose/ Eye Tearin= None GI Upset > 30mins: 0= None Tremor Observation: 1= Tremor [place], Not Seen Yawning Observation: 2= >3x During Session Anxiety or Irritability: 1=Feels Anxious/Irritable Goose Flesh Skin: 0=Smooth Skin COWS Score: 8 CIWA Score Nausea/Vomitin-No Nausea/No Vomiting Muscle Tremors: 1-None Visible, but [place] Anxiety: 1-Mildly Anxious Agitation: 0-Normal Activity Paroxysmal Sweats: 1-Minimal Palms Moist Orientation: 1-Uncertain about Date Tacttile Disturbances: 1-Very Mild Itch/Numbness Auditory Disturbances: 0-None Visual Disturbances: 2-Mild Sensitivity Headache: 1-Very Mild CIWA-Ar Total Score: 8 - Admission Criteria OASAS Guidelines: Admission for Medically Managed Detox: Requires at least one of the followin. CIWA greater than 12 2. Seizures within the past 24 hours 3. Delirium tremens within the past 24 hours 4. Hallucinations within the past 24 hours 5. Acute intervention needed for co occurring medical disorder 6. Acute intervention needed for co occurring psychiatric disorder 7. Severe withdrawal that cannot be handled at a lower level of care (continued vomiting, continued diarrhea, abnormal vital signs) requiring intravenous medication and/or fluids 8. Patient presents the following: Acute intervention needed for co-occurring med or psych disorder Admission Criteria Met: Admission criteria met Admission ROS [facility] - [facility] Chief Complaint: opioid and benzo withdrawal sx Allergies/Adverse Reactions: Allergies Allergy/AdvReac Type Severity Reaction Status Date / Time No Known Allergies Allergy Verified 12/05/18 19:18 History of Present Illness: Patient is a 28 yo female, homeless, with hx heroin and xanax dependence is here seeking inpatient detox d/t withdrawal sx, patient is known to the program last detox admission August 2018. Patient reports five moths sobriety relapsed July 2018. Denies hx of seizures, blackouts or overdose. PMHX: anemia Psych: anxiety and depression. Denies SI/HI Exam Limitations: No Limitations - Ebola screening Have you traveled outside of the country in the last 21 days: No (N) Have you had contact with anyone from an Ebola affected area: No Do you have a fever: No - Review of Systems Constitutional: Chills, Loss of Appetite, Weakness EENT: reports: Nose Congestion Respiratory: reports: No Symptoms reported Cardiac: reports: No Symptoms Reported GI: reports: Poor Appetite, Poor Fluid Intake : reports: No Symptoms Reported Musculoskeletal: reports: Back Pain Integumentary: reports: No Symptoms Reported Neuro: reports: See HPI Endocrine: reports: No Symptoms Reported Hematology: reports: Anemia Psychiatric: reports: Mood/Affect Appropiate, Orientated x3 Other Systems: Reviewed and Negative Patient History - Patient Medical History Hx Anemia: Yes (Not on medication) Hx Asthma: No Hx Chronic Obstructive Pulmonary Disease (COPD): No Hx Cancer: No Hx Cardiac Disorders: No Hx Congestive Heart Failure: No Hx Hypertension: No Hx Hypercholesterolemia: No Hx Pacemaker: No HX Cerebrovascular Accident: No Hx Seizures: Yes (Last 2013) Hx Dementia: No Hx Diabetes: No Hx Gastrointestinal Disorders: No Hx Liver Disease: No Hx Genitourinary Disorders: No Hx Sexually Transmitted Disorders: No Hx Renal Disease (ESRD): No Hx Thyroid Disease: No Hx Human Immunodeficiency Virus (HIV): No (Negative ) Hx Hepatitis C: No Hx Depression: Yes Hx Suicide Attempt: Yes (ideation, hospitalized [facility] psych Mar 2014) Hx Bipolar Disorder: No Hx Schizophrenia: No - Patient Surgical History Past Surgical History: No Hx Neurologic Surgery: No Hx Cataract Extraction: No Hx Cardiac Surgery: No Hx Lung Surgery: No Hx Breast Surgery: No Hx Breast Biopsy: No Hx Abdominal Surgery: No Hx Appendectomy: No Hx Cholecystectomy: No Hx Genitourinary Surgery: No Hx Section: No Hx Orthopedic Surgery: No Anesthesia Reaction: No - PPD History Date: 01/04/18 Results: 0mm - Reproductive History Last Menstrual Period: 05/19/18 - Smoking Cessation Smoking history: Current every day smoker Have you smoked in the past 12 months: Yes Aproximately how many cigarettes per day: 12 Cigars Per Day: 0 Hx Chewing Tobacco Use: No Initiated information on smoking cessation: Yes 'Breaking Loose' booklet given: 12/05/18 - Substance & Tx. History Hx Alcohol Use: No Hx Substance Use: Yes Substance Use Type: Heroin, Tranquilizers Hx Substance Use Treatment: Yes ([facility] Detox August 2018) - Substances abused Heroin Other (specify): sniff Substance route: Inhalation Frequency: Daily Amount used: 5-10 bags Age of first use: 23 Date of last use: 12/05/18 Alprazolam (Xanax) Substance route: Oral Frequency: 1-2 times per week Amount used: 2 mg -4mg Age of first use: 23 Date of last use: 09/13/18 Other Other (specify): Xanax Substance route: Oral Frequency: 1-2 times per week Amount used: 2 - 2mg Age of first use: 24 Date of last use: 12/03/18 Marijuana/Hashish Substance route: Smoking Frequency: 1-2 times per week Amount used: 1 blunt Age of first use: 14 Date of last use: 12/04/18 Family Disease History - Family Disease History Family Disease History: Other: Father (living, no contact, etoh), Mother (living ), Brother (two - healthy), Daughter (two - ages 10, 5,) Admission Physical Exam [facility] - Vital Signs Vital Signs: Vital Signs - 24 hr 12/05/18 19:11 Temperature 97.3 F L Pulse Rate 93 H Respiratory 16 Rate Blood Pressure 112/73 - Physical General Appearance: Yes: Disheveled, Anxious HEENTM: Yes: EOMI, Hearing grossly Normal, Normal ENT Inspection, Normocephalic , Normal Voice, CHRISTINE, Pharynx Normal, Tm's normal Respiratory: Yes: Chest Non-Tender, Lungs Clear, Normal Breath Sounds, No Respiratory Distress, No Accessory Muscle Use Neck: Yes: Within Normal Limits Breast: Yes: Breast Exam Deferred Cardiology: Yes: Regular Rhythm, Regular Rate Abdominal: Yes: Normal Bowel Sounds, Non Tender, Flat, Soft Genitourinary: Yes: Within Normal Limits Back: Yes: Normal Inspection Musculoskeletal: Yes: full range of Motion, Gait Steady, Pelvis Stable Extremities: Yes: Normal Capillary Refill, Normal Inspection, Normal Range of Motion, Non-Tender 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: Yes: waste oil pumper II-XII NML intact, Fully Oriented, Alert, Motor Strength 5/5, Depressed Affect Integumentary: Yes: Normal Color, Warm, Diaphoresis Lymphatic: Yes: Within Normal Limits - Diagnostic (1) Nicotine dependence Current Visit: Yes Status: Chronic Qualifiers: Nicotine product type: cigarettes Substance use status: uncomplicated Qualified Code(s): F17.210 - Nicotine dependence, cigarettes, uncomplicated (2) Opioid dependence with withdrawal Current Visit: Yes Status: Chronic (3) Sedative, hypnotic or anxiolytic dependence with withdrawal, uncomplicated Current Visit: Yes Status: Chronic Cleared for Admission [facility] - Detox or Rehab [facility] Level of Care: Medically Managed Detox Regimen/Protocol: Methadone/Valium Breathalyzer - Breathalyzer Breathalyzer: 0 Urine Drug Screen - Test Device Lot number: [id number] Expiration date: 08/23/20 - Control Is test valid?: Yes - Results Drug screen NEGATIVE: No Urine drug screen results: THC-Marijuana, FEN-Fentanyl, MOP-Opiates, OXY- Oxycodone, BZO-Benzodiazepines Inpatient Rehab Admission - Rehab Decision to Admit Inpatient rehab admission?: No
[2018-12-05] MEDS ORDERED: METHADONE HCL 10 MG TABLET (FOR DETOX USE ONLY) PO ONE (22:30)
[2018-12-05] MEDS: MELATONIN 5 MG TABLETS PO PRN (22:52)
[2018-12-05] MEDS: diazePAM 5 MG TABLET PO SCH (22:52)
[2018-12-05] MEDS: THIAMINE HCL 100 MG TABLET (FP) PO SCH (22:52)
[2018-12-06] MEDS: diazePAM 5 MG TABLET PO SCH ×3 (05:29→22:23)
[2018-12-06] MEDS: IBUPROFEN 400 MG TABLET (FP) PO PRN ×2 (05:30→16:53)
[2018-12-06 09:52] LABS: HEMATOCRIT 33.6 % (32.4-45.2); MCH 28.3 pg (25.7-33.7); MCHC 32.8 g/dl (32.0-36.0); MEAN CELL VOLUME 86.2 fl (80-96); MEAN PLT VOLUME 8.9 fl (7.5-11.1); PLATELET COUNT 316 K/MM3 (134-434); RDW 15.3 % (11.6-15.6); WHITE BLOOD COUNT 7.5 K/mm3 (4.0-10.0)
[2018-12-06 09:58] LABS: BILIRUBIN,TOTAL 0.2 mg/dL (0.2-1); BLOOD UREA NITROGEN 7.7 mg/dL (7-18); CALCIUM 8.5 mg/dL (8.5-10.1); CREATININE 0.6 mg/dL (0.55-1.3); TOT PROT 5.8 g/dl (6.4-8.2)
[2018-12-06] MEDS ORDERED: METHADONE HCL 5 MG TABLET (FOR DETOX USE ONLY) PO ONE (10:00)
[2018-12-06] MEDS: PRENATAL VITAMINS W/ FOLIC ACID TABLET (FP) PO SCH (10:33)
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
--- NOTE | 2018-12-06 13:55 | PN ---
[facility] CIWA - CIWA Score Nausea/Vomitin-No Nausea/No Vomiting Muscle Tremors: 2 Anxiety: 2 Agitation: 2 Paroxysmal Sweats: 2 Orientation: 0-Oriented Tacttile Disturbances: 0-None Auditory Disturbances: 0-None Visual Disturbances: 0-None Headache: 0-None Present CIWA-Ar Total Score: 8 BHS COWS - Scale Resting Pulse: 1= [place] 81-100 Sweatin= Chills/Flushing Restless Observation: 0= Sits Still Pupil Size: 0= Normal to Room Light Bone or Joint Aches: 1= Mild Discomfort Runny Nose/ Eye Tearin= Nasal Congestion GI Upset > 30mins: 0= None Tremor Observation of Outstretched Hands: 1= Tremor [place], Not Seen Yawning Observation: 2= >3x During Session Anxiety or Irritability: 1=Feels Anxious/Irritable Goose Flesh Skin: 0=Smooth Skin COWS Score: 8 BHS Progress Note (SOAP) Subjective: tired sweats shakes interrupted sleep Objective: 12/06/18 13:54 Vital Signs Temperature 98.1 F 12/06/18 09:41 Pulse Rate 83 12/06/18 09:41 Respiratory Rate 18 12/06/18 09:41 Blood Pressure 91/51 L 12/06/18 09:41 O2 Sat by Pulse Oximetry (%) Laboratory Tests 12/05/18 12/06/18 12/06/18 20:23 08:00 08:00 WBC 7.5 RBC 3.90 Hgb 11.0 Hct 33.6 MCV 86.2 MCH 28.3 MCHC 32.8 RDW 15.3 Plt Count 316 MPV 8.9 Sodium 138 Potassium 4.0 Chloride 104 Carbon Dioxide 32 Anion Gap 3 L BUN 7.7 Creatinine 0.6 Est GFR (CKD-EPI)AfAm 141.76 Est GFR (CKD-EPI)NonAf 122.31 Random Glucose 102 Calcium 8.5 Total Bilirubin 0.2 AST 12 L ALT 14 Alkaline Phosphatase 71 Total Protein 5.8 L Albumin 3.0 L POC Urine HCG, Qual Negative RPR Titer 12/06/18 08:00 WBC RBC Hgb Hct MCV MCH MCHC RDW Plt Count MPV Sodium Potassium Chloride Carbon Dioxide Anion Gap BUN Creatinine Est GFR (CKD-EPI)AfAm Est GFR (CKD-EPI)NonAf Random Glucose Calcium Total Bilirubin AST ALT Alkaline Phosphatase Total Protein Albumin POC Urine HCG, Qual RPR Titer Nonreactive labs noted aaox3 ambulating no acute distress Assessment: 12/06/18 13:54 withdrawals Plan: continue detox increase fluids
[2018-12-06] MEDS: diazePAM 5 MG TABLET PO PRN (16:52)
[2018-12-06] MEDS ORDERED: SUVOREXANT 10 MG TABLET PO PRN (22:00)
[2018-12-06] MEDS: THIAMINE HCL 100 MG TABLET (FP) PO SCH (22:23)
[2018-12-06] MEDS: MELATONIN 5 MG TABLETS PO PRN (22:23)
[2018-12-07] MEDS: diazePAM 5 MG TABLET PO SCH ×2 (06:15→17:17)
[2018-12-07] MEDS: IBUPROFEN 400 MG TABLET (FP) PO PRN (06:17)
[2018-12-07] MEDS ORDERED: METHADONE HCL 10 MG TABLET (FOR DETOX USE ONLY) PO ONE (10:00)
[2018-12-07] MEDS: diazePAM 5 MG TABLET PO PRN ×2 (10:39→23:37)
[2018-12-07] MEDS: PRENATAL VITAMINS W/ FOLIC ACID TABLET (FP) PO SCH (10:39)
--- NOTE | 2018-12-07 13:10 | PN ---
[facility] CIWA - CIWA Score Nausea/Vomitin-No Nausea/No Vomiting Muscle Tremors: None Anxiety: 2 Agitation: 0-Normal Activity Paroxysmal Sweats: 2 Orientation: 0-Oriented Tacttile Disturbances: 0-None Auditory Disturbances: 0-None Visual Disturbances: 0-None Headache: 0-None Present CIWA-Ar Total Score: 4 S COWS - Scale Resting Pulse: 0= [place] 80 or Below Sweatin= No chills or Flushing Restless Observation: 1= Difficult to Sit Still Pupil Size: 0= Normal to Room Light Bone or Joint Aches: 0= None Runny Nose/ Eye Tearin= None GI Upset > 30mins: 0= None Tremor Observation of Outstretched Hands: 0= None Yawning Observation: 1= 1-2x During Session Anxiety or Irritability: 2=Irritable/Anxious Goose Flesh Skin: 0=Smooth Skin COWS Score: 4 S Progress Note (SOAP) Subjective: c/o mild anxiety and sweats. Objective: 12/07/18 13:08 Vital Signs 12/07/18 12/07/18 07:32 09:27 Temperature 97.9 F 97.7 F Pulse Rate 69 77 Respiratory 18 18 Rate Blood Pressure 105/63 114/76 Lab Results WBC 7.5 K/mm3 (4.0-10.0) 12/06/18 08:00 RBC 3.90 M/mm3 (3.60-5.2) 12/06/18 08:00 Hgb 11.0 GM/dL (10.7-15.3) 12/06/18 08:00 Hct 33.6 % (32.4-45.2) 12/06/18 08:00 MCV 86.2 fl (80-96) 12/06/18 08:00 MCHC 32.8 g/dl (32.0-36.0) 12/06/18 08:00 RDW 15.3 % (11.6-15.6) 12/06/18 08:00 Plt Count 316 K/MM3 (134-434) 12/06/18 08:00 Sodium 138 mmol/L (136-145) 12/06/18 08:00 Potassium 4.0 mmol/L (3.5-5.1) 12/06/18 08:00 Chloride 104 mmol/L (98-107) 12/06/18 08:00 Carbon Dioxide 32 mmol/L (21-32) 12/06/18 08:00 Anion Gap 3 MMOL/L (8-16) L 12/06/18 08:00 BUN 7.7 mg/dL (7-18) 12/06/18 08:00 Creatinine 0.6 mg/dL (0.55-1.3) 12/06/18 08:00 Random Glucose 102 mg/dL (74-106) 12/06/18 08:00 Calcium 8.5 mg/dL (8.5-10.1) 12/06/18 08:00 Labs noted. Assessment: 12/07/18 13:09 AOX3, in no acute respiratory distress. Full ROM, ambulating in the unit. Mild withdrawal symptoms. Plan: continue detox.
[2018-12-07] MEDS: THIAMINE HCL 100 MG TABLET (FP) PO SCH (21:58)
[2018-12-08] MEDS ORDERED: METHADONE HCL 5 MG TABLET (FOR DETOX USE ONLY) PO ONE (06:00)
[2018-12-08] MEDS ORDERED: diazePAM 5 MG TABLET PO ONE (06:00)
[2018-12-08 08:24] VITALS: BP 107/66; PULSE 63; TEMP 98.2
--- NOTE | 2018-12-08 13:12 | DS ---
[facility] Detox Discharge Summary Admission Date: 12/05/18 Discharge Date: 12/08/18 - History Present History: Opioid Dependence, Sedative Dependence - Physical Exam Results Vital Signs: Vital Signs Temperature 98.2 F 12/08/18 08:24 Pulse Rate 63 12/08/18 08:24 Respiratory Rate 18 12/08/18 08:24 Blood Pressure 107/66 12/08/18 08:24 O2 Sat by Pulse Oximetry (%) - Treatment Hospital Course: Detox Protocol Followed, Detoxed Safely, Responded well, Discharged Condition Good, Rehab Referral Accepted Patient has Accepted a Rehab Referral to: Patient to follow up tomorrow morning at [facility] for rehab pending open bed - Medication Discharge Medications: Ambulatory Orders NK [No Known Home Medication] 09/16/18 - Diagnosis (1) Opioid dependence with withdrawal Status: Resolved (2) Sedative, hypnotic or anxiolytic dependence with withdrawal, uncomplicated Status: Resolved (3) Nicotine dependence Status: Chronic Qualifiers: Nicotine product type: cigarettes Substance use status: uncomplicated Qualified Code(s): F17.210 - Nicotine dependence, cigarettes, uncomplicated - AMA Did Patient Leave Against Medical Advice: No
[2018-12-08 23:15] LABS: PH,URINE 5.5 (5.0-8.0); URINE APPEARANCE CLOUDY; URINE BILIRUBIN NEGATIVE (NEGATIVE); URINE COLOR YELLOW; URINE GLUCOSE (UA) NEGATIVE (NEGATIVE); URINE KETONE TRACE (NEGATIVE); URINE LEUK ESTERASE NEGATIVE (NEGATIVE); URINE NITRITE NEGATIVE (NEGATIVE); URINE PROTEIN NEGATIVE (NEGATIVE); URINE UROBILINOGEN 0.2 mg/dL (0.2-1.0)
== END 2018-12-08 08:25 | disposition home or self-care (01) | DRG 773 ==
LOC: YASAS 16:37 → Y6N 21:58
PROVIDERS: ADMIT Surgery; ATTEND Surgery
PROC: HZ2ZZZZ Detoxification Services for Substance Abuse Treatment (ICD-10-PCS; principal; 2018-12-05)
DX: F11.23 Opioid dependence with withdrawal (principal); F13.230 Sedative, hypnotic or anxiolytic dependence with withdrawal, uncomplicated; F12.10 Cannabis abuse, uncomplicated; F17.210 Nicotine dependence, cigarettes, uncomplicated; F19.282 Other psychoactive substance dependence with psychoactive substance-induced sleep disorder; F19.24 Other psychoactive substance dependence with psychoactive substance-induced mood disorder; D64.9 Anemia, unspecified
CPT/HCPCS: 36415; 80053; 81003; 81025; 85027; 86593

== ENCOUNTER 2019-01-28 15:14 | Inpatient (IN) | payer OTHER ==
[2019-01-28 19:43] VITALS: BMI 30.2
--- NOTE | 2019-01-29 00:09 | HP ---
"COWS - Scale Resting Pulse: 1= [place] 81-100 Sweatin=Flushed/Facial Moisture Restless Observation: 5= Unable to Sit Still Pupil Size: 2= Moderately Dilated (Pupils = 4 mm) Bone or Joint Aches: 0= None Runny Nose/ Eye Tearin= Nasal Congestion GI Upset > 30mins: 0= None Tremor Observation: 2= Slight Tremor Visible Yawning Observation: 0= None Anxiety or Irritability: 4=Extreme Anxiety Goose Flesh Skin: 0=Smooth Skin COWS Score: 17 CIWA Score - Admission Criteria [facility] Guidelines: Admission for Medically Managed Detox: Requires at least one of the followin. CIWA greater than 12 2. Seizures within the past 24 hours 3. Delirium tremens within the past 24 hours 4. Hallucinations within the past 24 hours 5. Acute intervention needed for co occurring medical disorder 6. Acute intervention needed for co occurring psychiatric disorder 7. Severe withdrawal that cannot be handled at a lower level of care (continued vomiting, continued diarrhea, abnormal vital signs) requiring intravenous medication and/or fluids 8. Admitting History and Physical - Past Medical History ...LMP: 05/19/18 - Past Surgical History Past Surgical History: Yes: - Smoking History Smoking history: Current every day smoker Have you smoked in the past 12 months: Yes Aproximately how many cigarettes per day: 12 - Alcohol/Substance Use Hx Alcohol Use: No History of Substance Use: reports: None - Social History ADL: Independent History of Recent Travel: No Admission [facility] Chief Complaint: Having withdrawals. I need detox Allergies/Adverse Reactions: Allergies Allergy/AdvReac Type Severity Reaction Status Date / Time No Known Allergies Allergy Verified 01/28/19 19:30 History of Present Illness: 89 yo presnts w/ opioid withdrawal seeking detox. Last [facility] admission 12/05-. Denies hx of seizures, blackouts or overdose. Heroin use began at age 23. States uses 7-10 bags/day - nasal. Last used 01/27 @ 8 pm Xanax use began at age 23. Uses 2-3 mg/day. Marijuana use began at age 14. Nicotine use began at age 18. Smokes 1/2 PPD PMHx: Denies MHHx:Anxiety and depression. Denies thoughts of harming self or others. SHx: Undomiciled. Employed. [employer] legal issues. Patient Name: Alessandra Yadav Date: 1990 Address: [address] [place] [address] Sex: Female Rx Written Rx Dispensed Drug Quantity Days Supply Prescriber Name 03/21/2018 03/21/2018 suboxone 8 mg-2 mg sl film 7 5 Barbra Mederos M, [employer] MACHINE [employer]PARTMENT FLOORPERSON Patient Name: Alessandra Yadav Date: 1990 Address: [address] [place] [address] Sex: Female Rx Written Rx Dispensed Drug Quantity Days Supply Prescriber Name 04/10/2018 04/10/2018 suboxone 8 mg-2 mg sl film 14 7 Queta Zazueta Patient Name: Alessandra Yadav Date: 1990 [facility] [place] [address] Sex: Female Rx Written Rx Dispensed Drug Quantity Days Supply Prescriber Name 03/06/2018 03/06/2018 suboxone 8 mg-2 mg sl film 14 7 Shadia Boo NP, PHD 02/26/2018 02/26/2018 suboxone 8 mg-2 mg sl film 14 7 Shadia Boo BEAD WORKER SEWING, PHD 02/19/2018 02/19/2018 suboxone 8 mg-2 mg sl film 14 7 Shadia Boo NP, PHD 02/13/2018 02/13/2018 suboxone 8 mg-2 mg sl film 14 7 Shadia Boo NP, PHD 02/05/2018 02/05/2018 suboxone 8 mg-2 mg sl film 14 7 Shadia Boo NP, PHD Search Terms: Alessandra Yadav, 1990 Search Date: 01/29/2019 12:08:34 AM States Searched: [place], [place], [place], [place], [place], [place] The Drug Utilization Report below displays the controlled substance prescriptions, if any, that were dispensed in the indicated state(s). The information displayed on this report is compiled from requests submitted to other states' PMPs, and accurately reflects the information as returned by them. Blank uribe indicate data not provided by other state. This report was requested by: Barbra Mederos | Reference #: [id number] Exam Limitations: No Limitations - Ebola screening Have you traveled outside of the country in the last 21 days: No Have you had contact with anyone from an Ebola affected area: No Have you been sick,other than usual withdrawal symptoms: No Do you have a fever: No - Review of Systems Constitutional: Chills, Diaphoresis, Changes in sleep (Difficulty falling and staying asleep), Weight Stable EENT: reports: Nose Congestion, Dental Problems (Tooth ache) Respiratory: reports: No Symptoms reported Cardiac: reports: No Symptoms Reported GI: reports: No Symptoms Reported : reports: No Symptoms Reported Musculoskeletal: reports: No Symptoms Reported Integumentary: reports: No Symptoms Reported Neuro: reports: Dizziness Endocrine: reports: No Symptoms Reported Hematology: reports: No Symptoms Reported Psychiatric: reports: Mood/Affect Appropiate, Orientated x3 (Missed date by 1 day), Agitated, Anxious, Depressed (Denies thoughts of harming self or others.) Patient History - Patient Medical History Hx Anemia: Yes (Not on medication) Hx Asthma: No Hx Chronic Obstructive Pulmonary Disease (COPD): No Hx Cancer: No Hx Cardiac Disorders: No Hx Congestive Heart Failure: No Hx Hypertension: No Hx Hypercholesterolemia: No Hx Pacemaker: No HX Cerebrovascular Accident: No Hx Seizures: Yes (Last 2013) Hx Dementia: No Hx Diabetes: No Hx Gastrointestinal Disorders: No Hx Liver Disease: No Hx Genitourinary Disorders: No Hx Sexually Transmitted Disorders: No Hx Renal Disease (ESRD): No Hx Thyroid Disease: No Hx Human Immunodeficiency Virus (HIV): No (Negative ) Hx Hepatitis C: No Hx Depression: Yes Hx Suicide Attempt: Yes (ideation, hospitalized [facility] psych Mar 2014) Hx Bipolar Disorder: No Hx Schizophrenia: No - Patient Surgical History Past Surgical History: No Hx Neurologic Surgery: No Hx Cataract Extraction: No Hx Cardiac Surgery: No Hx Lung Surgery: No Hx Breast Surgery: No Hx Breast Biopsy: No Hx Abdominal Surgery: No Hx Appendectomy: No Hx Cholecystectomy: No Hx Genitourinary Surgery: No Hx Section: No Hx Orthopedic Surgery: No Anesthesia Reaction: No - PPD History Previous Implant?: Yes Documented Results: Negative w/proof Implanted On Prior [facility] Admission?: Yes Date: 01/04/18 Results: 0mm PPD to be Administered?: No - Reproductive History Patient is a Female of Child Bearing Age (11 -55 yrs old): Yes Last Menstrual Period: 01/29/19 Patient : No - Smoking Cessation Smoking history: Current every day smoker Have you smoked in the past 12 months: Yes Aproximately how many cigarettes per day: 10 Cigars Per Day: 0 Hx Chewing Tobacco Use: No Initiated information on smoking cessation: Yes 'Breaking Loose' booklet given: 01/29/19 - Substance & Tx. History Hx Alcohol Use: No Hx Substance Use: Yes Substance Use Type: Heroin, Marijuana, Opiates, Tranquilizers (Xanax) Hx Substance Use Treatment: Yes (detox, rehab, Denies OTP's) - Substances abused Heroin Other (specify): sniff Substance route: Inhalation Frequency: Daily Amount used: 1 to 5 bundles Age of first use: 23 Date of last use: 01/27/19 Alprazolam (Xanax) Substance route: Oral Frequency: 1-2 times per week Amount used: 2 mg -4mg Age of first use: 23 Date of last use: 09/13/18 Other Other (specify): Xanax Substance route: Oral Frequency: 1-2 times per week Amount used: 2 - 2mg Age of first use: 24 Date of last use: 01/28/19 Marijuana/Hashish Substance route: Smoking Frequency: 1-2 times per week Amount used: 1 blunt Age of first use: 14 Date of last use: 01/24/19 Admission Physical Exam S - Vital Signs Vital Signs: Vital Signs - 24 hr 01/28/19 19:29 Temperature 97.1 F L Pulse Rate 90 Respiratory 16 Rate Blood Pressure 130/80 - Physical General Appearance: Yes: Nourished, Mild Distress, Tremorous (Mild tremors of hands) HEENTM: Yes: EOMI (Jerking movement of eyes upon lateral gaze), Hearing grossly Normal, Normocephalic, Normal Voice, CHRISTINE (Pupils = 4 mm), Pharynx Normal, Nasal Congestion Respiratory: Yes: Lungs Clear (Pulse Ox = 99 %), Normal Breath Sounds, No Respiratory Distress Neck: Yes: No masses,lesions,Nodules, Supple Breast: Yes: Breast Exam Deferred Cardiology: Yes: Regular Rhythm, Regular Rate, S1, S2 Abdominal: Yes: Non Tender, Soft, Increased Bowel Sounds, Protuberent Genitourinary: Yes: Within Normal Limits Back: Yes: Normal Inspection Musculoskeletal: Yes: full range of Motion, Gait Steady Extremities: Yes: Normal Capillary Refill, Non-Tender, Tremors 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: Yes: floor grinder II-XII NML intact (Jerking movement of eyes upon lateral gaze), Alert, Motor Strength 5/5, Normal Response Integumentary: Yes: Normal Color, Warm, Diaphoresis (Increased facial moisture) Lymphatic: Yes: Within Normal Limits - Diagnostic (1) Cannabis abuse Current Visit: Yes Status: Chronic (2) Nicotine dependence Current Visit: Yes Status: Chronic Qualifiers: Nicotine product type: cigarettes Substance use status: uncomplicated Qualified Code(s): F17.210 - Nicotine dependence, cigarettes, uncomplicated (3) Opioid dependence with withdrawal Current Visit: Yes Status: Acute (4) Sedative, hypnotic or anxiolytic dependence with withdrawal, uncomplicated Current Visit: Yes Status: Acute Cleared for Admission [facility] - Detox or Rehab [facility] Level of Care: Medically Managed Detox Regimen/Protocol: Methadone Claeared for Rehab Admission: No Breathalyzer - Breathalyzer Breathalyzer: 0 Urine Drug Screen - Test Device Lot number: [id number] Expiration date: 09/22/20 - Control Is test valid?: No - Results Drug screen NEGATIVE: No Urine drug screen results: THC-Marijuana, FEN-Fentanyl, MOP-Opiates, OXY- Oxycodone, BZO-Benzodiazepines, BUP-Suboxone Inpatient Rehab Admission - Rehab Decision to Admit Inpatient rehab admission?: No"
[2019-01-29] MEDS ORDERED: MAGNESIUM HYDROX 2400MG/30ML ORAL SUSPENSION 30 ML CUP PO PRN (00:35)
[2019-01-29] MEDS ORDERED: BISMUTH SUBSALICYLATE 524 MG/30 ML UD PO PRN (00:35)
[2019-01-29] MEDS ORDERED: MAG HYDROX/AL HYDROX/SIMETH 30 ML UNIT-DOSE CUP PO PRN (00:35)
[2019-01-29] MEDS ORDERED: MENTHOL/PHENOL 1 EACH UD MM PRN (00:35)
[2019-01-29] MEDS ORDERED: ACETAMINOPHEN 325 MG TABLET (FP) PO PRN ×2 (00:35)
[2019-01-29] MEDS ORDERED: NICOTINE POLACRILEX 2 MG GUM BUC PRN (00:35)
[2019-01-29] MEDS ORDERED: cloNIDine HCL 0.1 MG TABLET PO PRN ×2 (00:35→00:44)
[2019-01-29] MEDS ORDERED: IBUPROFEN 400 MG TABLET (FP) PO PRN (00:35)
[2019-01-29] MEDS ORDERED: MAGNESIUM CITRATE 300 ML BOTTLE PO PRN (00:35)
[2019-01-29] MEDS ORDERED: METHADONE HCL 10 MG TABLET (FOR DETOX USE ONLY) PO ONE (00:44)
[2019-01-29] MEDS ORDERED: diazePAM 5 MG TABLET PO ONE (00:45)
[2019-01-29] MEDS ORDERED: QUEtiapine FUMARATE 50 MG TABLET PO ONE (00:50)
[2019-01-29] MEDS ORDERED: METHADONE HCL 10 MG TABLET PO ONE (10:00)
[2019-01-29] MEDS: PRENATAL VITAMINS W/ FOLIC ACID TABLET (FP) PO SCH (10:51)
[2019-01-29] MEDS: NICOTINE 14 MG/24 HOURS TOPICAL PATCH TD SCH (10:55)
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
--- NOTE | 2019-01-29 15:11 | PN ---
[facility] COWS - Scale Resting Pulse: 0= [place] 80 or Below Sweatin= No chills or Flushing Restless Observation: 1= Difficult to Sit Still Pupil Size: 1= Pupils >than Normal Bone or Joint Aches: 1= Mild Discomfort Runny Nose/ Eye Tearin= Nasal Congestion GI Upset > 30mins: 2= Nausea/Diarrhea Tremor Observation of Outstretched Hands: 1= Tremor [place], Not Seen Yawning Observation: 1= 1-2x During Session Anxiety or Irritability: 2=Irritable/Anxious Goose Flesh Skin: 0=Smooth Skin COWS Score: 10 BHS Progress Note (SOAP) Subjective: alert,irritable,anxious,interrupted sleep,pain in the body and back Objective: 01/29/19 15:10 Vital Signs Temperature 98.8 F 01/29/19 13:34 Pulse Rate 92 H 01/29/19 13:34 Respiratory Rate 18 01/29/19 13:34 Blood Pressure 127/78 01/29/19 13:34 O2 Sat by Pulse Oximetry (%) 01/29/19 15:10 Laboratory Last Values POC Urine HCG, Qual Negative 01/28/19 21:18 Assessment: 01/29/19 15:10 withdrawal symptom Plan: continue detox methadone regimen
[2019-01-29] MEDS: diazePAM 5 MG TABLET PO PRN ×2 (16:49→23:08)
[2019-01-29] MEDS ORDERED: SUVOREXANT 10 MG TABLET PO PRN (22:00)
[2019-01-29] MEDS: THIAMINE HCL 100 MG TABLET (FP) PO SCH (22:15)
[2019-01-29] MEDS: MELATONIN 5 MG TABLETS PO PRN (22:16)
[2019-01-30] MEDS: diazePAM 5 MG TABLET PO PRN ×3 (09:02→22:27)
[2019-01-30 09:45] LABS: HEMATOCRIT 36.9 % (32.4-45.2); HEMOGLOBIN 12.2 GM/dL (10.7-15.3); MCH 28.7 pg (25.7-33.7); MCHC 33.2 g/dl (32.0-36.0); MEAN CELL VOLUME 86.7 fl (80-96); MEAN PLT VOLUME 9.1 fl (7.5-11.1); PLATELET COUNT 293 K/MM3 (134-434); RBC 4.26 M/mm3 (3.60-5.2); RDW 16.2 % (11.6-15.6); WHITE BLOOD COUNT 7.8 K/mm3 (4.0-10.0)
[2019-01-30 09:59] LABS: ALBUMIN 3.3 g/dl (3.4-5.0); BILIRUBIN,TOTAL 0.4 mg/dL (0.2-1); BLOOD UREA NITROGEN 9.8 mg/dL (7-18); CALCIUM 8.7 mg/dL (8.5-10.1); CREATININE 0.6 mg/dL (0.55-1.3); POTASSIUM 4.3 mmol/L (3.5-5.1); TOT PROT 6.5 g/dl (6.4-8.2)
[2019-01-30] MEDS ORDERED: METHADONE HCL 5 MG TABLET (FOR DETOX USE ONLY) PO ONE (10:00)
[2019-01-30] MEDS: PRENATAL VITAMINS W/ FOLIC ACID TABLET (FP) PO SCH (10:16)
[2019-01-30] MEDS: NICOTINE 14 MG/24 HOURS TOPICAL PATCH TD SCH (10:17)
--- NOTE | 2019-01-30 12:14 | PN ---
[facility] COWS - Scale Resting Pulse: 0= [place] 80 or Below Sweatin= Chills/Flushing Restless Observation: 1= Difficult to Sit Still Pupil Size: 0= Normal to Room Light Bone or Joint Aches: 1= Mild Discomfort Runny Nose/ Eye Tearin= Nasal Congestion GI Upset > 30mins: 0= None Tremor Observation of Outstretched Hands: 1= Tremor [place], Not Seen Yawning Observation: 1= 1-2x During Session Anxiety or Irritability: 1=Feels Anxious/Irritable Goose Flesh Skin: 0=Smooth Skin COWS Score: 7 BHS Progress Note (SOAP) Subjective: sweats irritable agitation Objective: 01/30/19 12:13 Vital Signs Temperature 97.2 F L 01/30/19 10:31 Pulse Rate 73 01/30/19 10:31 Respiratory Rate 18 01/30/19 10:31 Blood Pressure 125/71 01/30/19 10:31 O2 Sat by Pulse Oximetry (%) Laboratory Tests 01/28/19 01/30/19 01/30/19 21:18 08:00 08:00 WBC 7.8 RBC 4.26 Hgb 12.2 Hct 36.9 MCV 86.7 MCH 28.7 MCHC 33.2 RDW 16.2 H Plt Count 293 MPV 9.1 Sodium 140 Potassium 4.3 Chloride 108 H Carbon Dioxide 29 Anion Gap 4 L BUN 9.8 Creatinine 0.6 Est GFR (CKD-EPI)AfAm 140.77 Est GFR (CKD-EPI)NonAf 121.46 Random Glucose 93 Calcium 8.7 Total Bilirubin 0.4 AST 10 L ALT 13 Alkaline Phosphatase 83 Total Protein 6.5 Albumin 3.3 L POC Urine HCG, Qual Negative labs noted aaox3 ambulating no acute distress Assessment: 01/30/19 12:14 withdrawalsx Plan: continue detox increase fluids
[2019-01-30] MEDS: THIAMINE HCL 100 MG TABLET (FP) PO SCH (22:26)
[2019-01-30] MEDS: MELATONIN 5 MG TABLETS PO PRN (22:26)
[2019-01-31 09:58] VITALS: BP 103/73; PULSE 69; TEMP 98.1
[2019-01-31] MEDS ORDERED: METHADONE HCL 10 MG TABLET (FOR DETOX USE ONLY) PO ONE (10:00)
[2019-01-31] MEDS ORDERED: METHADONE HCL 5 MG TABLET (FOR DETOX USE ONLY) PO ONE (10:06)
[2019-01-31] MEDS: PRENATAL VITAMINS W/ FOLIC ACID TABLET (FP) PO SCH (10:35)
[2019-01-31] MEDS: NICOTINE 14 MG/24 HOURS TOPICAL PATCH TD SCH (10:37)
--- NOTE | 2019-01-31 14:11 | DS ---
[facility] Detox Discharge Summary Admission Date: 01/29/19 Discharge Date: 01/31/19 - History Present History: Cannabis Dependence, Opioid Dependence, Sedative Dependence - Physical Exam Results Vital Signs: Vital Signs Temperature 98.1 F 01/31/19 09:57 Pulse Rate 69 01/31/19 09:57 Respiratory Rate 17 01/31/19 09:57 Blood Pressure 103/73 01/31/19 09:57 O2 Sat by Pulse Oximetry (%) Pertinent Admission Physical Exam Findings: pt arrived in withdrawals Vital Signs Temperature 98.1 F 01/31/19 09:57 Pulse Rate 69 01/31/19 09:57 Respiratory Rate 17 01/31/19 09:57 Blood Pressure 103/73 01/31/19 09:57 O2 Sat by Pulse Oximetry (%) Laboratory Tests 01/28/19 01/30/19 01/30/19 21:18 08:00 08:00 WBC 7.8 RBC 4.26 Hgb 12.2 Hct 36.9 MCV 86.7 MCH 28.7 MCHC 33.2 RDW 16.2 H Plt Count 293 MPV 9.1 Sodium 140 Potassium 4.3 Chloride 108 H Carbon Dioxide 29 Anion Gap 4 L BUN 9.8 Creatinine 0.6 Est GFR (CKD-EPI)AfAm 140.77 Est GFR (CKD-EPI)NonAf 121.46 Random Glucose 93 Calcium 8.7 Total Bilirubin 0.4 AST 10 L ALT 13 Alkaline Phosphatase 83 Total Protein 6.5 Albumin 3.3 L POC Urine HCG, Qual Negative labs noted aaox3 ambulating no acute distress no s/s of withdrawal s - Treatment Hospital Course: Detox Protocol Followed, Detoxed Safely, Responded well, Discharged Condition Good, Rehab Referral Accepted Patient has Accepted a Rehab Referral to: pt refused rehab; referral provided - Medication Discharge Medications: Ambulatory Orders NK [No Known Home Medication] 09/16/18 - Diagnosis (1) Cannabis abuse Status: Chronic (2) Opioid dependence with withdrawal Status: Chronic (3) Sedative, hypnotic or anxiolytic dependence with withdrawal, uncomplicated Status: Chronic (4) Substance induced mood disorder Status: Acute (5) Substance-induced sleep disorder Status: Acute (6) Excoriation (skin-picking) disorder Status: Chronic (7) Nicotine dependence Status: Chronic Qualifiers: Nicotine product type: cigarettes Substance use status: uncomplicated Qualified Code(s): F17.210 - Nicotine dependence, cigarettes, uncomplicated (8) Anemia Status: Resolved (9) MDD (major depressive disorder) Status: Ruled-out (10) PTSD (post-traumatic stress disorder) Status: Ruled-out - AMA Did Patient Leave Against Medical Advice: No
[2019-02-01] MEDS ORDERED: METHADONE HCL 5 MG TABLET (FOR DETOX USE ONLY) PO ONE (06:00)
== END 2019-01-31 11:05 | disposition home or self-care (01) | DRG 773 ==
LOC: YASAS 15:14 → Y6N 01-29 01:10
PROVIDERS: ADMIT Allergy & Immunology; ATTEND Allergy & Immunology
PROC: HZ2ZZZZ Detoxification Services for Substance Abuse Treatment (ICD-10-PCS; principal; 2019-01-29)
DX: F11.23 Opioid dependence with withdrawal (principal); F13.230 Sedative, hypnotic or anxiolytic dependence with withdrawal, uncomplicated; F12.10 Cannabis abuse, uncomplicated; F17.210 Nicotine dependence, cigarettes, uncomplicated; F19.282 Other psychoactive substance dependence with psychoactive substance-induced sleep disorder; F19.24 Other psychoactive substance dependence with psychoactive substance-induced mood disorder; F42.4 Excoriation (skin-picking) disorder; F43.10 Post-traumatic stress disorder, unspecified; F41.9 Anxiety disorder, unspecified; Z86.2 Personal history of diseases of the blood and blood-forming organs and certain disorders involving the immune mechanism; Z86.69 Personal history of other diseases of the nervous system and sense organs
CPT/HCPCS: 36415; 80053; 81025; 85027

== ENCOUNTER 2019-02-21 22:36 | Emergency (ER) | payer OTHER ==
[2019-02-21 22:52] VITALS: BP 101/74; PULSE 85; TEMP 98.4; BMI 30.1
--- NOTE | 2019-02-21 23:11 | PDOC ---
Attending Attestation - Resident Resident Name: Morales Ballard - ED Attending Attestation I have performed the following: I have examined & evaluated the patient, The case was reviewed & discussed with the resident, I agree w/resident's findings & plan - HPI HPI: 02/21/19 23:48 Pt woke up on Sunday 5 days ago with numbness to the left lower leg. She is a heroin smoker. She has no PMHx other than her drug use. She has some risk for DVT in that she is overweight and she may not be as mobile due to her drug use. She has no hx of contraceptive use and she has had no long drives or travel. - Physicial Exam PE: 02/22/19 05:03 Agree with resident exam Pt has no abd pain and no flnk pain. Pt has good pulses in her extremities, but we note that the left leg is colder than the right leg. No skin changes or color changes. Pt has no fever She appears sleepy Bu still alert and concerned abot her leg. Pt is able to ambulate. She states that the left leg feels weak. Pt has normal neuro exam normal spine exam; normal straight leg test. - Medical Decision Making 02/22/19 00:55 Patient Name: DIA ALVARADO THIS IS A PRELIMINARY REPORT FROM [employer] [employer] DATE OF SERVICE: 2019-02-21 23:50:06 IMAGES: 21 EXAM: VENOUS DUPLEX UNILATERAL Left lower extremity venous Doppler study REASON FOR EXAM: left leg numbness COMPARISON:None FINDINGS: Transverse and longitudinal mascorro scale views obtained. There is no echogenic thrombus. There is normal color flow filling the vessels with compressibility . Doppler demonstrates phasic and spontaneous flow as normal response to distal augmentation of the common femoral, superficial femoral, popliteal and proximal calf veins. There is no suspicious solid or cystic mass. IMPRESSION: No sonographic evidence of deep vein thrombosis, left leg. Patient Name: DIA ALVARADO THIS IS A PRELIMINARY REPORT FROM [facility] [employer] DATE OF SERVICE: 2019-02-21 23:54:59 IMAGES: 18 EXAM: ULTRASOUND LEFT ARTERIAL DOPPLER EXAM HISTORY: Left leg numbness COMPARISON: None. FINDINGS: Predominantly normal triphasic waveform patterns are encountered throughout the arterial vessels. The velocities encountered demonstrate no significant gradient to suggest high-grade stenosis or occlusion. There is flow detected within the posterior tibial artery. IMPRESSION: No evidence of occlusion. Arterial flow detected in the posterior tibial artery 02/22/19 00:56 Pt is stable for d/c home; she will follow with neurology
--- NOTE | 2019-02-21 23:41 | PDOC ---
History of Present Illness - General Chief Complaint: Muscle Cramping Stated Complaint: FOOT PAIN Time Seen by Provider: 02/21/19 23:11 History Source: Patient Exam Limitations: No Limitations - History of Present Illness Initial Comments: 02/21/19 23:34 29 yo female pmh of heroin (snorts, used 2 bads 2 hours ago) and benzo abuse (2 mg this am) presents to the ED for 1 week of left lower leg numbness and tingling. Pt states the symptoms are constant, non relieving with rest, worse on ambulation, denies weakness, coldness or loss of sensation into the left lower leg. Denies medical hx, infections in the leg, has IUD, denies recent travel/immobilization, denies calf tenderness, denies fevers, rash, CP, SOB, abdominal pain. Past History - Past Medical History Allergies/Adverse Reactions: Allergies Allergy/AdvReac Type Severity Reaction Status Date / Time No Known Allergies Allergy Verified 02/21/19 23:29 Home Medications: Ambulatory Orders Alprazolam [Xanax] 2 mg PO PRN 02/21/19 Anemia: Yes (Not on medication) Asthma: No Cancer: No Cardiac Disorders: No CVA: No COPD: No CHF: No Dementia: No Diabetes: No GI Disorders: No Disorders: No HTN: No Hypercholesterolemia: No Kidney Stones: No Liver Disease: No Psychiatric Problems: Yes (ANXIETY) Seizures: Yes (Last 2013) Thyroid Disease: No - Surgical History Abdominal Surgery: No Appendectomy: No Cardiac Surgery: No Cholecystectomy: No Lung Surgery: No Neurologic Surgery: No Orthopedic Surgery: No - Reproductive History PID: No - Immunization History Immunization Up to Date: Yes - Psycho Social/Smoking Cessation Hx Smoking Status: No Smoking History: Never smoked Have you smoked in the past 12 months: Yes Number of Cigarettes Smoked Daily: 10 Cigars Per Day: 0 'Breaking Loose' booklet given: 01/29/19 Hx Alcohol Use: No Drug/Substance Use Hx: Yes (weed) Substance Use Type: Heroin, Marijuana, Opiates, Tranquilizers (Xanax) Hx Substance Use Treatment: Yes (detox, rehab, Denies OTP's) Review of Systems - Review of Systems Constitutional: No: Chills, Fever HEENTM: No: Double Vision Respiratory: No: Shortness of Breath Cardiac (ROS): No: Chest Pain, Edema ABD/GI: No: Constipated, Diarrhea, Nausea, Vomiting : No: Burning, Dysuria, Flank Pain, Hematuria Musculoskeletal: No: Back Pain Integumentary: No: Change in Color, Rash 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: Yes: Numbness, Tingling. No: Headache, Tremors, Weakness, Unsteady Gait, Ataxia *Physical Exam - Vital Signs Last Vital Signs Temp Pulse Resp BP Pulse Ox 98.4 F 85 19 101/74 96 02/21/19 22:50 02/21/19 22:50 02/21/19 22:50 02/21/19 22:50 02/21/19 22:50 - Physical Exam General Appearance: Yes: Nourished, Appropriately Dressed. No: Apparent Distress HEENT: positive: EOMI, CHRISTINE, Hearing Grossly Normal Neck: positive: Supple. negative: Carotid bruit Respiratory/Chest: positive: Lungs Clear, Normal Breath Sounds. negative: Respiratory Distress, Accessory Muscle Use, Crackles, Rales, Rhonchi, Stridor, Wheezing Cardiovascular: positive: Regular Rhythm, Regular Rate, S1, S2. negative: Edema , JVD, Murmur Vascular Pulses: Dorsalis-Pedis (R): 4+, Doralis-Pedis (L): 4+ Gastrointestinal/Abdominal: positive: Flat, Soft. negative: Pulsatile Mass, Protuberent, Distended, Guarding, Rebound, Tenderness, Hernia Musculoskeletal: negative: CVA Tenderness Extremity: positive: Normal Capillary Refill, Normal Inspection, Normal Range of Motion Integumentary: positive: Normal Color, Dry, Warm Neurologic: positive: Fully Oriented, Alert, Normal Response, Motor Strength 5/5 , Other (pt intoxicated). negative: Sensory Deficit, Confused Medical Decision Making - Medical Decision Making 02/21/19 23:56 29 yo female pmh of heroin (snorts, used 2 bads 2 hours ago) and benzo abuse (2 mg this am) presents to the ED for 1 week of left lower leg numbness and tingling. Pt states the symptoms are constant, non relieving with rest, worse on ambulation, denies weakness, coldness or loss of sensation into the left lower leg. Denies medical hx, infections in the leg, has IUD, denies recent travel/immobilization, denies calf tenderness, denies fevers, rash, CP, SOB, abdominal pain. vitals wnl pt left leg noted to be slightly colder than right. DVT and arterial US ordered Discharge - Discharge Information Problems reviewed: Yes Clinical Impression/Diagnosis: Leg pain Condition: Stable Disposition: HOME - Admission No - Follow up/Referral Referrals: Guzman Guillaume MD [Primary Care Provider] - Velasquez Sims MD [Staff Physician] - Shaq Culver DO [Staff Physician] - - Patient Discharge Instructions Patient Printed Discharge Instructions: DI for Leg Pain Additional Instructions: Please see your primary doctor within the next 48 hours. Make an appointment with the Neurologist and vascular surgeon if the symptoms persist. If you choose to go to detox, you can always return or head straight to your nearest detox center. Return to the ER for new or concerning symptoms including but not limited to: inability to walk, weakness in your legs, high fevers. Thank you - Post Discharge Activity
== END 2019-02-22 01:08 | disposition home or self-care (01) ==
LOC: JER 22:36
DX: R20.0 Anesthesia of skin (principal); F13.10 Sedative, hypnotic or anxiolytic abuse, uncomplicated; F11.10 Opioid abuse, uncomplicated; F41.9 Anxiety disorder, unspecified; D64.9 Anemia, unspecified; Z86.69 Personal history of other diseases of the nervous system and sense organs
CPT/HCPCS: 93926-TC; 93971-TC; 99281-25

== ENCOUNTER 2019-04-17 16:41 | Inpatient (IN) | payer OTHER ==
[2019-04-17 18:58] VITALS: BMI 30.4
--- NOTE | 2019-04-18 00:27 | HP ---
COWS - Scale Resting Pulse: 1= [place] 81-100 Sweatin=Flushed/Facial Moisture Restless Observation: 1= Difficult to Sit Still Pupil Size: 0= Normal to Room Light Bone or Joint Aches: 4=Acute Joint/Muscle Pain Runny Nose/ Eye Tearin= None GI Upset > 30mins: 1= Stomach Cramp Tremor Observation: 2= Slight Tremor Visible Yawning Observation: 1= 1-2x During Session Anxiety or Irritability: 2=Irritable/Anxious Goose Flesh Skin: 0=Smooth Skin COWS Score: 14 CIWA Score Nausea/Vomitin Muscle Tremors: 3 Anxiety: 3 Agitation: 2 Paroxysmal Sweats: 2 Orientation: 0-Oriented Tacttile Disturbances: 0-None Auditory Disturbances: 0-None Visual Disturbances: 0-None Headache: 3-Moderate CIWA-Ar Total Score: 15 - Admission Criteria [facility] Guidelines: Admission for Medically Managed Detox: Requires at least one of the followin. CIWA greater than 12 2. Seizures within the past 24 hours 3. Delirium tremens within the past 24 hours 4. Hallucinations within the past 24 hours 5. Acute intervention needed for co occurring medical disorder 6. Acute intervention needed for co occurring psychiatric disorder 7. Severe withdrawal that cannot be handled at a lower level of care (continued vomiting, continued diarrhea, abnormal vital signs) requiring intravenous medication and/or fluids 8. Admitting History and Physical - Past Medical History ...LMP: 01/29/19 - Past Surgical History Past Surgical History: Yes: - Smoking History Smoking history: Never smoked Have you smoked in the past 12 months: Yes Aproximately how many cigarettes per day: 10 - Alcohol/Substance Use Hx Alcohol Use: No History of Substance Use: reports: None - Social History ADL: Independent History of Recent Travel: No Admission [facility] Chief Complaint: Heroin and Xanax withdrawal symptoms Allergies/Adverse Reactions: Allergies Allergy/AdvReac Type Severity Reaction Status Date / Time No Known Allergies Allergy Verified 04/17/19 18:44 History of Present Illness: 29 years old female with 6 years of heroin dependence and 8 years of benzo. dependence is seeking admission to detox. Patient reports multiple detox admissions and reports insignificant period of sobriety. Patient has medical history of anemia, seizures and psych. history of depression and anxiety. She reports suicide attempt in 2014 and denies suicidal ideation at this time. Confidential Drug Utilization Report Search Terms: judy linares, 1990 Search Date: 04/18/2019 12:25:16 AM The Drug Utilization Report below displays all of the controlled substance prescriptions, if any, that your patient has filled in the last twelve months. The information displayed on this report is compiled from pharmacy submissions to the Department, and accurately reflects the information as submitted by the pharmacies. There are no results for the search terms that you entered. Exam Limitations: No Limitations - Ebola screening Have you traveled outside of the country in the last 21 days: No (N) Have you had contact with anyone from an Ebola affected area: No Do you have a fever: No - Review of Systems Constitutional: Chills, Loss of Appetite, Malaise, Night Sweats, Changes in sleep EENT: reports: No Symptoms Reported Respiratory: reports: No Symptoms reported Cardiac: reports: No Symptoms Reported GI: reports: Nausea, Poor Appetite, Poor Fluid Intake, Abdominal cramping : reports: No Symptoms Reported Integumentary: reports: Dryness, Flushing Neuro: reports: Headache, Tremors Endocrine: reports: No Symptoms Reported Hematology: reports: No Symptoms Reported Psychiatric: reports: Mood/Affect Appropiate, Orientated x3, Anxious, Depressed Other Systems: Reviewed and Negative Patient History - Patient Medical History Hx Anemia: Yes (Not on medication) Hx Asthma: No Hx Chronic Obstructive Pulmonary Disease (COPD): No Hx Cancer: No Hx Cardiac Disorders: No Hx Congestive Heart Failure: No Hx Hypertension: No Hx Hypercholesterolemia: No Hx Pacemaker: No HX Cerebrovascular Accident: No Hx Seizures: Yes (Last 2013) Hx Dementia: No Hx Diabetes: No Hx Gastrointestinal Disorders: No Hx Liver Disease: No Hx Genitourinary Disorders: No Hx Sexually Transmitted Disorders: No Hx Renal Disease (ESRD): No Hx Thyroid Disease: No Hx Human Immunodeficiency Virus (HIV): No (Negative ) Hx Hepatitis C: No Hx Depression: Yes Hx Suicide Attempt: Yes (ideation, hospitalized [facility] psych Mar 2014. Denies suicidal ideation at this) Hx Bipolar Disorder: No Hx Schizophrenia: No - Patient Surgical History Past Surgical History: Yes Hx Neurologic Surgery: No Hx Cataract Extraction: No Hx Cardiac Surgery: No Hx Lung Surgery: No Hx Breast Surgery: No Hx Breast Biopsy: No Hx Abdominal Surgery: No Hx Appendectomy: No Hx Cholecystectomy: No Hx Genitourinary Surgery: No Hx Section: Yes (2007, 2012) Hx Orthopedic Surgery: No Anesthesia Reaction: No - PPD History Previous Implant?: Yes Documented Results: Negative w/proof Implanted On Prior [facility] Admission?: Yes Date: 01/04/18 Results: 0mm PPD to be Administered?: Yes - Reproductive History Patient is a Female of Child Bearing Age (11 -55 yrs old): Yes Last Menstrual Period: 03/28/19 - Smoking Cessation Smoking history: Never smoked Have you smoked in the past 12 months: Yes Aproximately how many cigarettes per day: 10 Cigars Per Day: 0 Hx Chewing Tobacco Use: No Initiated information on smoking cessation: Yes 'Breaking Loose' booklet given: 04/18/19 - Substance & Tx. History Hx Alcohol Use: No Hx Substance Use: Yes Substance Use Type: Marijuana, Opiates, Tranquilizers Hx Substance Use Treatment: Yes ([facility]) - Substances abused Heroin Substance route: Inhalation Frequency: Daily Amount used: 15 to 20 bags Age of first use: 23 Date of last use: 04/17/19 Alprazolam (Xanax) Substance route: Oral Frequency: 1-3 times last 30 days Amount used: 2 mg Age of first use: 21 Date of last use: 04/14/19 Admission Physical Exam S - Vital Signs Vital Signs: Vital Signs - 24 hr 04/17/19 18:44 Temperature 97.6 F Pulse Rate 90 Respiratory 16 Rate Blood Pressure 106/78 - Physical General Appearance: Yes: Moderate Distress, Tremorous, Irritable, Anxious HEENTM: Yes: Within Normal Limits Respiratory: Yes: Lungs Clear, Normal Breath Sounds, No Respiratory Distress Neck: Yes: Within Normal Limits Breast: Yes: Breast Exam Deferred Cardiology: Yes: Tachycardia Abdominal: Yes: Normal Bowel Sounds, Soft Genitourinary: Yes: Within Normal Limits Back: Yes: Normal Inspection Musculoskeletal: Yes: Within Normal Limits Extremities: Yes: Normal Inspection 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: Yes: Within Normal Limits, Normal Mood/Affect Integumentary: Yes: Warm Lymphatic: Yes: Within Normal Limits - Diagnostic (1) Cannabis dependence Current Visit: Yes Status: Chronic (2) Seizures Current Visit: Yes Status: Chronic (3) Nicotine dependence Current Visit: Yes Status: Chronic Qualifiers: Nicotine product type: cigarettes Substance use status: uncomplicated Qualified Code(s): F17.210 - Nicotine dependence, cigarettes, uncomplicated (4) Opioid dependence with withdrawal Current Visit: Yes Status: Acute (5) Sedative, hypnotic or anxiolytic dependence with withdrawal, uncomplicated Current Visit: Yes Status: Acute (6) Anemia Current Visit: Yes Status: Chronic Qualifiers: Anemia type: iron deficiency Cleared for Admission S - Detox or Rehab [facility] Level of Care: Medically Managed Detox Regimen/Protocol: Methadone/Valium Claeared for Rehab Admission: No Breathalyzer - Breathalyzer Breathalyzer: 0 Urine Drug Screen - Test Device Lot number: [id number] Expiration date: 10/23/20 - Control Is test valid?: Yes - Results Drug screen NEGATIVE: No Urine drug screen results: THC-Marijuana, FEN-Fentanyl, MOP-Opiates, BZO- Benzodiazepines Inpatient Rehab Admission - Rehab Decision to Admit Inpatient rehab admission?: No
[2019-04-18] MEDS ORDERED: MAGNESIUM HYDROX 2400MG/30ML ORAL SUSPENSION 30 ML CUP PO PRN (00:51)
[2019-04-18] MEDS ORDERED: ACETAMINOPHEN 325 MG TABLET (FP) PO PRN ×2 (00:51)
[2019-04-18] MEDS ORDERED: MAGNESIUM CITRATE 300 ML BOTTLE PO PRN (00:51)
[2019-04-18] MEDS ORDERED: IBUPROFEN 400 MG TABLET (FP) PO PRN (00:51)
[2019-04-18] MEDS ORDERED: MAG HYDROX/AL HYDROX/SIMETH 30 ML UNIT-DOSE CUP PO PRN (00:51)
[2019-04-18] MEDS ORDERED: NICOTINE POLACRILEX 2 MG GUM BUC PRN (00:51)
[2019-04-18] MEDS ORDERED: MENTHOL/PHENOL 1 EACH UD MM PRN (00:51)
[2019-04-18] MEDS ORDERED: BISMUTH SUBSALICYLATE 524 MG/30 ML UD PO PRN (00:51)
[2019-04-18] MEDS ORDERED: cloNIDine HCL 0.1 MG TABLET PO PRN (00:55)
[2019-04-18] MEDS ORDERED: METHADONE HCL 10 MG TABLET (FOR DETOX USE ONLY) PO ONE (00:55)
[2019-04-18] MEDS: diazePAM 5 MG TABLET PO PRN ×3 (01:50→16:43)
[2019-04-18] MEDS: diazePAM 5 MG TABLET PO SCH ×3 (05:30→22:09)
[2019-04-18] MEDS: NICOTINE 14 MG/24 HOURS TOPICAL PATCH TD SCH (10:44)
[2019-04-18] MEDS: PRENATAL VITAMINS W/ FOLIC ACID TABLET (FP) PO SCH (10:45)
--- NOTE | 2019-04-18 12:33 | PN ---
S CIWA - CIWA Score Nausea/Vomitin-No Nausea/No Vomiting Muscle Tremors: 2 Anxiety: 3 Agitation: 2 Paroxysmal Sweats: 2 Orientation: 0-Oriented Tacttile Disturbances: 2-Mild Itch/Numbness/Burn Auditory Disturbances: 0-None Visual Disturbances: 1-Very Mild Sensitivity Headache: 1-Very Mild CIWA-Ar Total Score: 13 BHS COWS - Scale Resting Pulse: 0= [place] 80 or Below Sweatin= Chills/Flushing Restless Observation: 1= Difficult to Sit Still Pupil Size: 0= Normal to Room Light Bone or Joint Aches: 1= Mild Discomfort Runny Nose/ Eye Tearin= Runny Nose/Eyes GI Upset > 30mins: 1= Stomach Cramp Tremor Observation of Outstretched Hands: 1= Tremor [place], Not Seen Yawning Observation: 2= >3x During Session Anxiety or Irritability: 2=Irritable/Anxious Goose Flesh Skin: 0=Smooth Skin COWS Score: 11 S Progress Note (SOAP) Subjective: Patient c/o of interrupted sleep, chills, sweats, body aches Objective: 04/18/19 12:32 Vital Signs Temperature 97.5 F L 04/18/19 09:11 Pulse Rate 57 L 04/18/19 09:11 Respiratory Rate 18 04/18/19 09:11 Blood Pressure 100/60 04/18/19 09:11 O2 Sat by Pulse Oximetry (%) labs pending Assessment: 04/18/19 15:31 Patient is Aox3 no acute distress EENT WNL Full ROM no gait disturbance withdrawal sx Plan: increase fluids continue detox continue to monitor
--- NOTE | 2019-04-18 13:41 | EKG ---
Test Reason : Blood Pressure : / mmHG Vent. Rate : 059 BPM Atrial Rate : 059 BPM P-R Int : 130 ms QRS Dur : 082 ms QT Int : 400 ms P-R-T Axes : 032 004 023 degrees QTc Int : 396 ms SINUS BRADYCARDIA MINIMAL VOLTAGE CRITERIA FOR LVH, MAY BE NORMAL VARIANT WHEN COMPARED WITH ECG OF 02-JAN-2018 19:55, NONSPECIFIC T WAVE ABNORMALITY NO LONGER EVIDENT IN ANTERIOR LEADS Confirmed by DELIA PATEL, MORIS ([id number]) on 04/18/2019 1:41:47 PM Referred By: Buddy Ruiz Confirmed By:MORIS LIN MD
[2019-04-18] MEDS: THIAMINE HCL 100 MG TABLET (FP) PO SCH (22:09)
[2019-04-18] MEDS: MELATONIN 5 MG TABLETS PO PRN (22:09)
[2019-04-19] MEDS: diazePAM 5 MG TABLET PO PRN ×3 (01:30→20:12)
[2019-04-19] MEDS: diazePAM 5 MG TABLET PO SCH ×2 (05:57→17:21)
[2019-04-19] MEDS ORDERED: METHADONE HCL 10 MG TABLET (FOR DETOX USE ONLY) ONE (09:46)
[2019-04-19] MEDS ORDERED: METHADONE HCL 5 MG TABLET (FOR DETOX USE ONLY) ONE (09:47)
[2019-04-19] MEDS ORDERED: METHADONE (DETOX) 20 MG, METHADONE (DETOX) 5 MG PO ONE (10:00)
[2019-04-19] MEDS: NICOTINE 14 MG/24 HOURS TOPICAL PATCH TD SCH (10:30)
[2019-04-19] MEDS: PRENATAL VITAMINS W/ FOLIC ACID TABLET (FP) PO SCH (10:32)
[2019-04-19 11:07] LABS: HEMATOCRIT 34.9 % (32.4-45.2); HEMOGLOBIN 11.5 GM/dL (10.7-15.3); MCH 28.7 pg (25.7-33.7); MCHC 32.8 g/dl (32.0-36.0); MEAN CELL VOLUME 87.6 fl (80-96); MEAN PLT VOLUME 9.4 fl (7.5-11.1); PLATELET COUNT 301 K/MM3 (134-434); RBC 3.99 M/mm3 (3.60-5.2); RDW 14.5 % (11.6-15.6); WHITE BLOOD COUNT 7.4 K/mm3 (4.0-10.0)
[2019-04-19 11:38] LABS: ALBUMIN 3.1 g/dl (3.4-5.0); BILIRUBIN,TOTAL 0.4 mg/dL (0.2-1); BLOOD UREA NITROGEN 11.3 mg/dL (7-18); CALCIUM 8.8 mg/dL (8.5-10.1); CREATININE 0.6 mg/dL (0.55-1.3); POTASSIUM 4.1 mmol/L (3.5-5.1); TOT PROT 6.2 g/dl (6.4-8.2)
--- NOTE | 2019-04-19 13:09 | PN ---
S CIWA - CIWA Score Nausea/Vomitin-No Nausea/No Vomiting Muscle Tremors: 2 Anxiety: 3 Agitation: 2 Paroxysmal Sweats: 3 Orientation: 0-Oriented Tacttile Disturbances: 0-None Auditory Disturbances: 0-None Visual Disturbances: 0-None Headache: 2-Mild CIWA-Ar Total Score: 12 BHS COWS - Scale Resting Pulse: 0= [place] 80 or Below Sweatin= Beads of Sweat on Face Restless Observation: 1= Difficult to Sit Still Pupil Size: 0= Normal to Room Light Bone or Joint Aches: 2= Severe Diffuse Aches Runny Nose/ Eye Tearin= None GI Upset > 30mins: 0= None Tremor Observation of Outstretched Hands: 2= Slight Tremor Visible Yawning Observation: 1= 1-2x During Session Anxiety or Irritability: 2=Irritable/Anxious Goose Flesh Skin: 0=Smooth Skin COWS Score: 11 S Progress Note (SOAP) Subjective: c/o sweats, headache, anxiety, interrupted sleep, and shakes. Objective: 04/19/19 13:08 Vital Signs 04/19/19 04/19/19 04/19/19 06:29 07:52 09:10 Temperature 97.9 F 98 F Pulse Rate 75 62 Respiratory 18 18 20 Rate Blood Pressure 98/64 100/64 Laboratory Last Values WBC 7.4 K/mm3 (4.0-10.0) 04/19/19 08:00 RBC 3.99 M/mm3 (3.60-5.2) 04/19/19 08:00 Hgb 11.5 GM/dL (10.7-15.3) 04/19/19 08:00 Hct 34.9 % (32.4-45.2) 04/19/19 08:00 MCV 87.6 fl (80-96) 04/19/19 08:00 MCH 28.7 pg (25.7-33.7) 04/19/19 08:00 MCHC 32.8 g/dl (32.0-36.0) 04/19/19 08:00 RDW 14.5 % (11.6-15.6) D 04/19/19 08:00 Plt Count 301 K/MM3 (134-434) 04/19/19 08:00 MPV 9.4 fl (7.5-11.1) 04/19/19 08:00 Sodium 138 mmol/L (136-145) 04/19/19 08:00 Potassium 4.1 mmol/L (3.5-5.1) 04/19/19 08:00 Chloride 104 mmol/L (98-107) 04/19/19 08:00 Carbon Dioxide 29 mmol/L (21-32) 04/19/19 08:00 Anion Gap 5 MMOL/L (8-16) L 04/19/19 08:00 BUN 11.3 mg/dL (7-18) 04/19/19 08:00 Creatinine 0.6 mg/dL (0.55-1.3) 04/19/19 08:00 Est GFR (CKD-EPI)AfAm 140.77 04/19/19 08:00 Est GFR (CKD-EPI)NonAf 121.46 04/19/19 08:00 Random Glucose 98 mg/dL (74-106) 04/19/19 08:00 Calcium 8.8 mg/dL (8.5-10.1) 04/19/19 08:00 Total Bilirubin 0.4 mg/dL (0.2-1) 04/19/19 08:00 AST 12 U/L (15-37) L 04/19/19 08:00 ALT 16 U/L (13-61) 04/19/19 08:00 Alkaline Phosphatase 73 U/L (45-117) 04/19/19 08:00 Total Protein 6.2 g/dl (6.4-8.2) L 04/19/19 08:00 Albumin 3.1 g/dl (3.4-5.0) L 04/19/19 08:00 Labs noted. Assessment: 04/19/19 13:09 AOX3, in no acute respiratory distress. Full ROM, ambulating in the unit. Withdrawal symptoms. Plan: continue detox.
[2019-04-19] MEDS: METHOCARBAMOL 500 MG TABLET PO PRN ×2 (13:23→22:10)
[2019-04-19] MEDS: MELATONIN 5 MG TABLETS PO PRN (22:10)
[2019-04-19] MEDS: THIAMINE HCL 100 MG TABLET (FP) PO SCH (22:10)
[2019-04-20] MEDS ORDERED: diazePAM 5 MG TABLET PO ONE (06:00)
[2019-04-20] MEDS ORDERED: METHADONE HCL 10 MG TABLET (FOR DETOX USE ONLY) PO ONE (10:00)
[2019-04-20] MEDS: PRENATAL VITAMINS W/ FOLIC ACID TABLET (FP) PO SCH (10:31)
[2019-04-20] MEDS: diazePAM 5 MG TABLET PO PRN ×4 (10:33→22:22)
[2019-04-20] MEDS: NICOTINE 14 MG/24 HOURS TOPICAL PATCH TD SCH (10:34)
--- NOTE | 2019-04-20 13:19 | PN ---
[facility] CIWA - CIWA Score Nausea/Vomitin-No Nausea/No Vomiting Muscle Tremors: 2 Anxiety: 3 Agitation: 2 Paroxysmal Sweats: 2 Orientation: 0-Oriented Tacttile Disturbances: 0-None Auditory Disturbances: 0-None Visual Disturbances: 1-Very Mild Sensitivity Headache: 0-None Present CIWA-Ar Total Score: 10 S COWS - Scale Resting Pulse: 1= [place] 81-100 Sweatin= Chills/Flushing Restless Observation: 0= Sits Still Pupil Size: 1= Pupils >than Normal Bone or Joint Aches: 1= Mild Discomfort Runny Nose/ Eye Tearin= Nasal Congestion GI Upset > 30mins: 2= Nausea/Diarrhea Tremor Observation of Outstretched Hands: 1= Tremor [place], Not Seen Yawning Observation: 0= None Anxiety or Irritability: 2=Irritable/Anxious Goose Flesh Skin: 0=Smooth Skin COWS Score: 10 [facility] Progress Note (SOAP) Subjective: 29 years old female admitted on 04/18/19 for benzo and opiate withdrawal sx management treating with valium and methadone detox regimen feeling ok today reseting in bed limited conversation with staff feeling tired Objective: 04/20/19 13:18 Vital Signs Temperature 97.2 F L 04/20/19 13:13 Pulse Rate 81 04/20/19 13:13 Respiratory Rate 18 04/20/19 13:13 Blood Pressure 100/70 04/20/19 13:13 O2 Sat by Pulse Oximetry (%) Laboratory Last Values WBC 7.4 K/mm3 (4.0-10.0) 04/19/19 08:00 RBC 3.99 M/mm3 (3.60-5.2) 04/19/19 08:00 Hgb 11.5 GM/dL (10.7-15.3) 04/19/19 08:00 Hct 34.9 % (32.4-45.2) 04/19/19 08:00 MCV 87.6 fl (80-96) 04/19/19 08:00 MCH 28.7 pg (25.7-33.7) 04/19/19 08:00 MCHC 32.8 g/dl (32.0-36.0) 04/19/19 08:00 RDW 14.5 % (11.6-15.6) D 04/19/19 08:00 Plt Count 301 K/MM3 (134-434) 04/19/19 08:00 MPV 9.4 fl (7.5-11.1) 04/19/19 08:00 Sodium 138 mmol/L (136-145) 04/19/19 08:00 Potassium 4.1 mmol/L (3.5-5.1) 04/19/19 08:00 Chloride 104 mmol/L (98-107) 04/19/19 08:00 Carbon Dioxide 29 mmol/L (21-32) 04/19/19 08:00 Anion Gap 5 MMOL/L (8-16) L 04/19/19 08:00 BUN 11.3 mg/dL (7-18) 04/19/19 08:00 Creatinine 0.6 mg/dL (0.55-1.3) 04/19/19 08:00 Est GFR (CKD-EPI)AfAm 140.77 04/19/19 08:00 Est GFR (CKD-EPI)NonAf 121.46 04/19/19 08:00 Random Glucose 98 mg/dL (74-106) 04/19/19 08:00 Calcium 8.8 mg/dL (8.5-10.1) 04/19/19 08:00 Total Bilirubin 0.4 mg/dL (0.2-1) 04/19/19 08:00 AST 12 U/L (15-37) L 04/19/19 08:00 ALT 16 U/L (13-61) 04/19/19 08:00 Alkaline Phosphatase 73 U/L (45-117) 04/19/19 08:00 Total Protein 6.2 g/dl (6.4-8.2) L 04/19/19 08:00 Albumin 3.1 g/dl (3.4-5.0) L 04/19/19 08:00 lab noted Assessment: 04/20/19 13:19 benzo and opiate withdrawal Plan: valium and methadone regiments
[2019-04-20] MEDS: THIAMINE HCL 100 MG TABLET (FP) PO SCH (22:22)
[2019-04-20] MEDS: METHOCARBAMOL 500 MG TABLET PO PRN (22:23)
[2019-04-20] MEDS: MELATONIN 5 MG TABLETS PO PRN (22:23)
[2019-04-21] MEDS: METHOCARBAMOL 500 MG TABLET PO PRN ×3 (05:43→22:02)
[2019-04-21] MEDS ORDERED: METHADONE HCL 10 MG TABLET (FOR DETOX USE ONLY) ONE (09:02)
[2019-04-21] MEDS ORDERED: METHADONE HCL 5 MG TABLET (FOR DETOX USE ONLY) ONE (09:02)
[2019-04-21] MEDS: PRENATAL VITAMINS W/ FOLIC ACID TABLET (FP) PO SCH (09:35)
[2019-04-21] MEDS ORDERED: METHADONE (DETOX) 10 MG, METHADONE (DETOX) 5 MG PO ONE (10:00)
[2019-04-21] MEDS: NICOTINE 14 MG/24 HOURS TOPICAL PATCH TD SCH (11:00)
[2019-04-21] MEDS: GABAPENTIN 100 MG CAPSULE PO SCH ×2 (14:19→22:01)
--- NOTE | 2019-04-21 14:25 | PN ---
S CIWA - CIWA Score Nausea/Vomitin-No Nausea/No Vomiting Muscle Tremors: 1-None Visible, but [place] Anxiety: 3 Agitation: 2 Paroxysmal Sweats: No Perspiration Orientation: 0-Oriented Tacttile Disturbances: 0-None Auditory Disturbances: 0-None Visual Disturbances: 0-None Headache: 0-None Present CIWA-Ar Total Score: 6 BHS COWS - Scale Resting Pulse: 0= [place] 80 or Below Sweatin= Chills/Flushing Restless Observation: 0= Sits Still Pupil Size: 1= Pupils >than Normal Bone or Joint Aches: 1= Mild Discomfort Runny Nose/ Eye Tearin= None GI Upset > 30mins: 1= Stomach Cramp Tremor Observation of Outstretched Hands: 1= Tremor [place], Not Seen Yawning Observation: 0= None Anxiety or Irritability: 1=Feels Anxious/Irritable Goose Flesh Skin: 0=Smooth Skin COWS Score: 6 S Progress Note (SOAP) Subjective: 29 years old female admitted on 04/18/19 for benzo and opiate withdrawal sx management treating with valium and methadone detox regiment requests to be seen by a psychiatrist due to long history of anxiety was taking medication "long time ago" psychiatrist referral vistaril 50 mg po x 1 Objective: 04/21/19 14:27 Vital Signs Temperature 97.9 F 04/21/19 13:19 Pulse Rate 68 04/21/19 13:19 Respiratory Rate 18 04/21/19 13:19 Blood Pressure 110/73 04/21/19 13:19 O2 Sat by Pulse Oximetry (%) Laboratory Last Values WBC 7.4 K/mm3 (4.0-10.0) 04/19/19 08:00 RBC 3.99 M/mm3 (3.60-5.2) 04/19/19 08:00 Hgb 11.5 GM/dL (10.7-15.3) 04/19/19 08:00 Hct 34.9 % (32.4-45.2) 04/19/19 08:00 MCV 87.6 fl (80-96) 04/19/19 08:00 MCH 28.7 pg (25.7-33.7) 04/19/19 08:00 MCHC 32.8 g/dl (32.0-36.0) 04/19/19 08:00 RDW 14.5 % (11.6-15.6) D 04/19/19 08:00 Plt Count 301 K/MM3 (134-434) 04/19/19 08:00 MPV 9.4 fl (7.5-11.1) 04/19/19 08:00 Sodium 138 mmol/L (136-145) 04/19/19 08:00 Potassium 4.1 mmol/L (3.5-5.1) 04/19/19 08:00 Chloride 104 mmol/L (98-107) 04/19/19 08:00 Carbon Dioxide 29 mmol/L (21-32) 04/19/19 08:00 Anion Gap 5 MMOL/L (8-16) L 04/19/19 08:00 BUN 11.3 mg/dL (7-18) 04/19/19 08:00 Creatinine 0.6 mg/dL (0.55-1.3) 04/19/19 08:00 Est GFR (CKD-EPI)AfAm 140.77 04/19/19 08:00 Est GFR (CKD-EPI)NonAf 121.46 04/19/19 08:00 Random Glucose 98 mg/dL (74-106) 04/19/19 08:00 Calcium 8.8 mg/dL (8.5-10.1) 04/19/19 08:00 Total Bilirubin 0.4 mg/dL (0.2-1) 04/19/19 08:00 AST 12 U/L (15-37) L 04/19/19 08:00 ALT 16 U/L (13-61) 04/19/19 08:00 Alkaline Phosphatase 73 U/L (45-117) 04/19/19 08:00 Total Protein 6.2 g/dl (6.4-8.2) L 04/19/19 08:00 Albumin 3.1 g/dl (3.4-5.0) L 04/19/19 08:00 RPR Titer Nonreactive (NONREACTIVE) 04/19/19 08:00 lab noted Assessment: 04/21/19 14:27 benzo and opiate withdrawal Plan: valium and methadone regiments
[2019-04-21] MEDS ORDERED: hydrOXYzine PAMOATE 50 MG CAPSULE (FP) PO ONE (14:26)
--- NOTE | 2019-04-21 16:46 | CONSULT ---
[facility] Psychiatric Consult - Data Date of interview: 04/21/19 Admission source: [facility] Identifying data: Revisit to [facility] and admission to [address] [place] [address] for this 29 y/o [place]-born female self-referred for detoxification treatment. KATY issues : heroin, benzodiazepine (xanax, nicotine. Patient is single, mother of two, currently domiciled, employed (now on leave of absence) and supported by relatives. Substance Abuse History: Discusssed with the patient. Details in current [facility] visit as follows : Smoking history: Never smoked. Have you smoked in the past 12 months: Yes. Aproximately how many cigarettes per day: 10. Cigars Per Day: 0. Hx Chewing Tobacco Use: No. Initiated information on smoking cessation: Yes. 'Breaking Loose' booklet given: 04/18/19. - Substance & Tx. History. Hx Alcohol Use: No. Hx Substance Use: Yes. Substance Use Type: Marijuana, Opiates , Tranquilizers. Hx Substance Use Treatment: Yes ([facility]). - Substances abused. Heroin. Substance route: Inhalation. Frequency: Daily. Amount used: 15 to 20 bags. Age of first use: 23. Date of last use: 04/17/19. Alprazolam ( Xanax). Substance route: Oral. Frequency: 1-3 times last 30 days. Amount used : 2 mg. Age of first use: 21. Date of last use: 04/14/19 Medical History: Medical profile is remarkable for anemia, distant antecedent of withdrawal-related seizures (2013) and history of two sections. Psychiatric History: Patient endorses one psychiatric hospitalization (brief stay for three days) at [facility] in 2014. Circumstance of admission : acting out behavior while visiting common-law in halfway and suicidal threats during that visit. Patient indicates that she never followed on her referrals. She first saw a psychiatrist while attending High School (behavioral issues). No medications dispensed because preference was given to psychotherapy which lasted for an entire year. Tretament continues for approximately another two years during which she was medicated with diazepam. Diagnosed with MDD and Anxiety Disorder. Patient denies history of suicide attempts. Physical/Sexual Abuse/Trauma History: Not discussed in this session. Patient declines. Additional Comment: Urine drug screen results: THC-Marijuana, FEN-Fentanyl, MOP- Opiates, BZO-Benzodiazepines. Noted. Mental Status Exam - Mental Status Exam Alert and Oriented to: Time, Place, Person Cognitive Function: Good Patient Appearance: Well Groomed Mood: Anxious, Hopeful Affect: Appropriate, Normal Range Patient Behavior: Fatigued, Appropriate, Cooperative Speech Pattern: Clear (fluent in [place]ong[place]), Appropriate Voice Loudness: Normal Thought Process: Intact, Goal Oriented Thought Disorder: Not Present Hallucinations: Denies Suicidal Ideation: Denies Homicidal Ideation: Denies Insight/Judgement: Fair Sleep: Poorly, Difficulty falling asleep Appetite: Good Gait/Station: Normal Psychiatric Findings - Problem List ([place] 1, 2,3) (1) Opioid dependence with withdrawal Current Visit: Yes Status: Acute (2) Sedative, hypnotic or anxiolytic dependence with withdrawal, uncomplicated Current Visit: Yes Status: Acute (3) Cannabis dependence Current Visit: Yes Status: Chronic (4) Nicotine dependence Current Visit: Yes Status: Chronic Qualifiers: Nicotine product type: cigarettes Substance use status: uncomplicated Qualified Code(s): F17.210 - Nicotine dependence, cigarettes, uncomplicated (5) Substance induced mood disorder Current Visit: Yes Status: Chronic (6) History of depression Current Visit: Yes Status: Chronic (7) Anxiety disorder Current Visit: Yes Status: Chronic Comment: As per self-report. (8) Insomnia Current Visit: Yes Status: Chronic - Initial Treatment Plan Initial Treatment Plan: Psychiatric inteview conducted with medical student in attendance (with patient's verbal consent). Psychoeducation. Sleep hygiene. Support. Detoxification in progress. NA meetings. MAT services discussed with patient : receptive to idea of suboxone but still ambivalent. Groups. Medications discussed. Patient requested to get back on sertraline and gabapentin (described as effective in the past by the patient). Ordered : zoloft 50 mg po daily + gabapentin 100 mg po tid. Side effects/benefits of both drugs
--- NOTE | 2019-04-21 17:40 | PN ---
[facility] Progress Note Note: Psychiatry Attending's note : Discussed earlier with patient. Patient requested vistaril prn for anxiety. Side effects/benefits revisited with patient. Vistaril 25 mg po Q8H prn. Ordered. Patient agrees.
[2019-04-21] MEDS: hydrOXYzine PAMOATE 25 MG CAPSULE (FP) PO PRN ×2 (18:43→22:01)
[2019-04-21] MEDS: THIAMINE HCL 100 MG TABLET (FP) PO SCH (22:01)
[2019-04-21] MEDS: MELATONIN 5 MG TABLETS PO PRN (22:03)
[2019-04-22] MEDS: METHOCARBAMOL 500 MG TABLET PO PRN ×3 (05:44→20:02)
[2019-04-22] MEDS: GABAPENTIN 100 MG CAPSULE PO SCH ×3 (05:44→22:20)
[2019-04-22] MEDS: hydrOXYzine PAMOATE 25 MG CAPSULE (FP) PO PRN ×4 (05:44→22:20)
[2019-04-22] MEDS ORDERED: METHADONE HCL 10 MG TABLET (FOR DETOX USE ONLY) PO ONE (10:00)
[2019-04-22] MEDS: PRENATAL VITAMINS W/ FOLIC ACID TABLET (FP) PO SCH (10:03)
[2019-04-22] MEDS: SERTRALINE HCL 50 MG TABLET (FP) PO SCH (10:03)
[2019-04-22] MEDS: NICOTINE 14 MG/24 HOURS TOPICAL PATCH TD SCH (10:03)
--- NOTE | 2019-04-22 12:28 | PN ---
[facility] CIWA - CIWA Score Nausea/Vomitin-No Nausea/No Vomiting Muscle Tremors: 1-None Visible, but [place] Anxiety: 1-Mildly Anxious Agitation: 1-Slight > Activity Paroxysmal Sweats: No Perspiration Orientation: 0-Oriented Tacttile Disturbances: 0-None Auditory Disturbances: 0-None Visual Disturbances: 0-None Headache: 0-None Present CIWA-Ar Total Score: 3 S COWS - Scale Resting Pulse: 0= [place] 80 or Below Sweatin= No chills or Flushing Restless Observation: 0= Sits Still Pupil Size: 0= Normal to Room Light Bone or Joint Aches: 0= None Runny Nose/ Eye Tearin= None GI Upset > 30mins: 0= None Tremor Observation of Outstretched Hands: 2= Slight Tremor Visible Yawning Observation: 0= None Anxiety or Irritability: 1=Feels Anxious/Irritable Goose Flesh Skin: 0=Smooth Skin COWS Score: 3 [facility] Progress Note (SOAP) Subjective: 29 years old female admitted on 04/18/19 for benzo and opiate withdrawal sx management treating with valium and methadone detox regiments feeling better today resting on bed comfortably encourage to attend behavior and psychosocial therapies while in detox Objective: 04/22/19 12:30 Vital Signs Temperature 97.1 F L 04/22/19 09:09 Pulse Rate 75 04/22/19 09:09 Respiratory Rate 16 04/22/19 09:09 Blood Pressure 104/76 04/22/19 09:09 O2 Sat by Pulse Oximetry (%) Laboratory Last Values WBC 7.4 K/mm3 (4.0-10.0) 04/19/19 08:00 RBC 3.99 M/mm3 (3.60-5.2) 04/19/19 08:00 Hgb 11.5 GM/dL (10.7-15.3) 04/19/19 08:00 Hct 34.9 % (32.4-45.2) 04/19/19 08:00 MCV 87.6 fl (80-96) 04/19/19 08:00 MCH 28.7 pg (25.7-33.7) 04/19/19 08:00 MCHC 32.8 g/dl (32.0-36.0) 04/19/19 08:00 RDW 14.5 % (11.6-15.6) D 04/19/19 08:00 Plt Count 301 K/MM3 (134-434) 04/19/19 08:00 MPV 9.4 fl (7.5-11.1) 04/19/19 08:00 Sodium 138 mmol/L (136-145) 04/19/19 08:00 Potassium 4.1 mmol/L (3.5-5.1) 04/19/19 08:00 Chloride 104 mmol/L (98-107) 04/19/19 08:00 Carbon Dioxide 29 mmol/L (21-32) 04/19/19 08:00 Anion Gap 5 MMOL/L (8-16) L 04/19/19 08:00 BUN 11.3 mg/dL (7-18) 04/19/19 08:00 Creatinine 0.6 mg/dL (0.55-1.3) 04/19/19 08:00 Est GFR (CKD-EPI)AfAm 140.77 04/19/19 08:00 Est GFR (CKD-EPI)NonAf 121.46 04/19/19 08:00 Random Glucose 98 mg/dL (74-106) 04/19/19 08:00 Calcium 8.8 mg/dL (8.5-10.1) 04/19/19 08:00 Total Bilirubin 0.4 mg/dL (0.2-1) 04/19/19 08:00 AST 12 U/L (15-37) L 04/19/19 08:00 ALT 16 U/L (13-61) 04/19/19 08:00 Alkaline Phosphatase 73 U/L (45-117) 04/19/19 08:00 Total Protein 6.2 g/dl (6.4-8.2) L 04/19/19 08:00 Albumin 3.1 g/dl (3.4-5.0) L 04/19/19 08:00 RPR Titer Nonreactive (NONREACTIVE) 04/19/19 08:00 Assessment: 04/22/19 12:30 benzo and opiate withdrawal Plan: valium and methadone regiments
[2019-04-22] MEDS: MELATONIN 5 MG TABLETS PO PRN (22:20)
[2019-04-22] MEDS: THIAMINE HCL 100 MG TABLET (FP) PO SCH (22:20)
[2019-04-23] MEDS ORDERED: METHADONE HCL 5 MG TABLET (FOR DETOX USE ONLY) PO ONE (06:00)
[2019-04-23] MEDS: METHOCARBAMOL 500 MG TABLET PO PRN (06:14)
[2019-04-23] MEDS: GABAPENTIN 100 MG CAPSULE PO SCH (06:14)
--- NOTE | 2019-04-23 09:00 | PN ---
[facility] Progress Note Note: Patient is discharged today. Scripts for 30 days supply of medications( Neurontin 100 mg/tid, Zoloft 50 mg/day) is electronically transmitted to [facility] at [address] [place], [place] [id number]
[2019-04-23] MEDS: SERTRALINE HCL 50 MG TABLET (FP) PO SCH (09:12)
[2019-04-23] MEDS: NICOTINE 14 MG/24 HOURS TOPICAL PATCH TD SCH (09:12)
[2019-04-23] MEDS: PRENATAL VITAMINS W/ FOLIC ACID TABLET (FP) PO SCH (09:12)
[2019-04-23 09:23] VITALS: BP 109/76; PULSE 85; TEMP 97
--- NOTE | 2019-04-23 13:02 | DS ---
[facility] Detox Discharge Summary Admission Date: 04/18/19 Discharge Date: 04/23/19 - History Present History: Opioid Dependence, Sedative Dependence Additional Comments: 29 yearsj old female admitted on 04/18/19 for benzo and opiate withdrawal sx management treated wtih valium and methadone detox regiments patient has completed valium and methadone regiments and tolerated well alert oriented x 3 seen by psychiatrist resume zoloft and gabapentin respiratory clear lungs bilaterally on auscultation abdomen soft round obese no rebound tenderness skin warm and dry - Physical Exam Results Vital Signs: Vital Signs Temperature 97.0 F L 04/23/19 08:36 Pulse Rate 85 04/23/19 08:36 Respiratory Rate 16 04/23/19 08:36 Blood Pressure 109/76 04/23/19 08:36 O2 Sat by Pulse Oximetry (%) Pertinent Admission Physical Exam Findings: benzo and opiate withdrawal Laboratory Last Values WBC 7.4 K/mm3 (4.0-10.0) 04/19/19 08:00 RBC 3.99 M/mm3 (3.60-5.2) 04/19/19 08:00 Hgb 11.5 GM/dL (10.7-15.3) 04/19/19 08:00 Hct 34.9 % (32.4-45.2) 04/19/19 08:00 MCV 87.6 fl (80-96) 04/19/19 08:00 MCH 28.7 pg (25.7-33.7) 04/19/19 08:00 MCHC 32.8 g/dl (32.0-36.0) 04/19/19 08:00 RDW 14.5 % (11.6-15.6) D 04/19/19 08:00 Plt Count 301 K/MM3 (134-434) 04/19/19 08:00 MPV 9.4 fl (7.5-11.1) 04/19/19 08:00 Sodium 138 mmol/L (136-145) 04/19/19 08:00 Potassium 4.1 mmol/L (3.5-5.1) 04/19/19 08:00 Chloride 104 mmol/L (98-107) 04/19/19 08:00 Carbon Dioxide 29 mmol/L (21-32) 04/19/19 08:00 Anion Gap 5 MMOL/L (8-16) L 04/19/19 08:00 BUN 11.3 mg/dL (7-18) 04/19/19 08:00 Creatinine 0.6 mg/dL (0.55-1.3) 04/19/19 08:00 Est GFR (CKD-EPI)AfAm 140.77 04/19/19 08:00 Est GFR (CKD-EPI)NonAf 121.46 04/19/19 08:00 Random Glucose 98 mg/dL (74-106) 04/19/19 08:00 Calcium 8.8 mg/dL (8.5-10.1) 04/19/19 08:00 Total Bilirubin 0.4 mg/dL (0.2-1) 04/19/19 08:00 AST 12 U/L (15-37) L 04/19/19 08:00 ALT 16 U/L (13-61) 04/19/19 08:00 Alkaline Phosphatase 73 U/L (45-117) 04/19/19 08:00 Total Protein 6.2 g/dl (6.4-8.2) L 04/19/19 08:00 Albumin 3.1 g/dl (3.4-5.0) L 04/19/19 08:00 RPR Titer Nonreactive (NONREACTIVE) 04/19/19 08:00 lab noted - Treatment Hospital Course: Detox Protocol Followed, Detoxed Safely, Responded well, Discharged Condition Good, Rehab Referral Accepted Patient has Accepted a Rehab Referral to: [facility] - Medication Discharge Medications: Ambulatory Orders Naloxone HCl [Narcan] 4 mg NS ASDIR PRN #1 spray 04/22/19 Gabapentin [Neurontin -] 100 mg PO TID #90 capsule 04/23/19 Sertraline HCl [Zoloft -] 50 mg PO DAILY #30 tablet 04/23/19 - Diagnosis (1) Opioid dependence with withdrawal Status: Acute (2) Sedative, hypnotic or anxiolytic dependence with withdrawal, uncomplicated Status: Acute (3) Nicotine dependence Status: Acute Qualifiers: Nicotine product type: cigarettes Substance use status: in withdrawal Qualified Code(s): F17.213 - Nicotine dependence, cigarettes, with withdrawal (4) Substance induced mood disorder Status: Suspected - AMA Did Patient Leave Against Medical Advice: No CIWA Score - CIWA Score Nausea/Vomitin-No Nausea/No Vomiting Muscle Tremors: 1-None Visible, but [place] Anxiety: 0-No Anxiety, at Ease Agitation: 0-Normal Activity Paroxysmal Sweats: No Perspiration Orientation: 0-Oriented Tacttile Disturbances: 0-None Auditory Disturbances: 0-None Visual Disturbances: 0-None Headache: 0-None Present CIWA-Ar Total Score: 1 COWS (PN) - Opiate Withdrawal Resting Pulse: 1= [place] 81-100 Sweatin= Chills/Flushing Restless Observation: 0= Sits Still Pupil Size: 0= Normal to Room Light Bone or Joint Aches: 0= None Runny Nose/ Eye Tearin= None GI Upset > 30mins: 0= None Tremor Observation of Outstretched Hands: 0= None Yawning Observation: 0= None Anxiety or Irritability: 0= None Goose Flesh Skin: 0=Smooth Skin COWS Score: 2
== END 2019-04-23 09:15 | disposition home or self-care (01) | DRG 773 ==
LOC: YASAS 16:41 → Y3N 04-18 01:07
PROVIDERS: ADMIT Allergy & Immunology; ATTEND Allergy & Immunology
PROC: HZ2ZZZZ Detoxification Services for Substance Abuse Treatment (ICD-10-PCS; principal; 2019-04-18)
DX: F11.23 Opioid dependence with withdrawal (principal); F13.230 Sedative, hypnotic or anxiolytic dependence with withdrawal, uncomplicated; F12.20 Cannabis dependence, uncomplicated; F17.213 Nicotine dependence, cigarettes, with withdrawal; F19.24 Other psychoactive substance dependence with psychoactive substance-induced mood disorder; F41.9 Anxiety disorder, unspecified; G47.00 Insomnia, unspecified; R00.0 Tachycardia, unspecified; Z86.69 Personal history of other diseases of the nervous system and sense organs; Z91.5 Personal history of self-harm
CPT/HCPCS: 36415; 80053; 85027; 86593; 93005; 93010; J0735